=== PATIENT | female | born 1980 | race Caucasian/White ===

== ENCOUNTER 2018-03-01 12:48 | Emergency (ER) | payer SELFPAY ==
--- NOTE | 2018-03-01 13:57 | RAD REPORT ---
EXAM DESCRIPTION: RAD - Wrist Left 3 View - 03/01/2018 1:41 pm CLINICAL HISTORY: Wrist pain following repetitive trauma COMPARISON: None. FINDINGS: No gross fracture deformity is seen. Variable density over the lunate bone is felt to be s ummation artifact rather than fracture. Radiocarpal joint space is normal. Soft tissues are mildly ed ematous. There is no dislocation or periosteal reaction noted. No foreign body. IMPRESSION: Mild soft tissue edema with no acute bone finding confirmed. If the patient has continued, unexplained symptoms. MR imaging or thin section CT imaging could be pe rformed as an outpatient to assess for an occult bone process.
--- NOTE | 2018-03-01 15:04 | ER ---
Nurse's Notes [facility] Name: Renata Worthy Age: 37 yrs Sex: Female : 1980 Arrival Date: 03/01/2018 Time: 12:52 Bed 25 Private MD: Stiven Amador H Diagnosis: Pain in left hand Presentation: 03/01 13:10 Presenting complaint: Patient states: Left hand pain and bruising for 3-4 days after aj using left hand to hammer tile onto floor. Transition of care: patient was not received from another setting of care. Onset of symptoms was March 01, 2018. Risk Assessment: Do you want to hurt yourself or someone else? Patient reports no desire to harm self or others. Initial Sepsis Screen: Does the patient meet any 2 criteria? No. Patient's initial sepsis screen is negative. Does the patient have a suspected source of infection? No. Patient's initial sepsis screen is negative. Care prior to arrival: None. 13:10 Method Of Arrival: Ambulatory 13:10 Acuity: PATRICIA 4 aj Triage Assessment: 13:11 General: Appears in no apparent distress. comfortable, Behavior is calm, cooperative, aj appropriate for age. Pain: Complains of pain in left arm. Neuro: Level of Consciousness is awake, alert, obeys commands, Oriented to person, place, time, situation, Appropriate for age. Respiratory: Airway is patent Respiratory effort is even, unlabored, Respiratory pattern is regular, symmetrical. Derm: Skin is intact, is healthy with good turgor, Skin is pink, warm \\T\\ dry. normal. Musculoskeletal: Reports pain in left arm. Injury Description: Bruise sustained to left wrist. 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 - Social history:: Smoking status: Patient uses tobacco products, smokes one-half pack cigarettes per day. - Ebola Screening: : No symptoms or risks identified at this time. Screenin:54 Abuse screen: Denies threats or abuse. Denies injuries from another. Nutritional aj1 screening: No deficits noted. Tuberculosis screening: No symptoms or risk factors identified. 15:56 Fall Risk None identified. aj1 Assessment: 14:54 General: Appears in no apparent distress. uncomfortable, Behavior is calm, cooperative, aj1 appropriate for age. Pain: Complains of pain in left wrist Pain radiates to left arm Pain currently is 8 out of 10 on a pain scale. Quality of pain is described as "it just hurts" Pain began one week ago Is continuous, Aggravated by repositioning. Neuro: Level of Consciousness is awake, alert, obeys commands, Oriented to person, place, time, situation, Reports paresthesias in left hand. Cardiovascular: Patient's skin is warm and dry. Respiratory: Airway is patent Respiratory effort is even, unlabored, Respiratory pattern is regular, symmetrical. GI: No signs and/or symptoms were reported involving the gastrointestinal system. : No signs and/or symptoms were reported regarding the genitourinary system. EENT: No signs and/or symptoms were reported regarding the EENT system. Derm: Skin is pink, warm \\T\\ dry. normal, Bruising that is green, on left wrist. Musculoskeletal: Range of motion: intact in left wrist. 15:56 Reassessment: Patient appears in no apparent distress at this time. No changes from aj1 previously documented assessment. Patient and/or family updated on plan of care and expected duration. Pain level reassessed. Patient is alert, oriented x 3, equal unlabored respirations, skin warm/dry/pink. Vital Signs: 13:11 BP 123 / 106; Pulse 77; Resp 16; Temp 97.1; Pulse Ox 97% on R/A; Weight 90.72 kg; aj Height 5 ft. 3 in. (160.02 cm); 13:11 Body Mass Index 35.43 (90.72 kg, 160.02 cm) aj ED Course: 12:52 Patient arrived in ED. sb2 12:52 Stiven Amaodr DO is Private Physician. sb2 13:11 Triage completed. aj 13:11 Arm band placed on left wrist. Patient placed in waiting room, Patient notified of wait aj time. X-ray ordered. 13:41 XRAY Wrist LEFT 3 view In Process Unspecified. EDMS 14:21 Fei Beasley PA is PHCP. cp 14:21 Brian Oliva MD is Attending Physician. cp 14:24 Yeni French, RN is Primary Nurse. aj1 14:54 Patient has correct armband on for positive identification. Bed in low position. Call aj1 light in reach. Side rails up X 1. 14:54 No provider procedures requiring assistance completed. aj1 15:03 Stiven Amador DO is Referral Physician. cp 15:56 Patient did not have IV access during this emergency room visit. aj1 Administered Medications: 15:56 Drug: Ibuprofen 800 mg Route: PO; aj1 Outcome: 15:03 Discharge ordered by MD. cp 15:56 Discharged to home ambulatory. aj1 15:56 Condition: good 15:56 Discharge instructions given to patient, Instructed on discharge instructions, follow up and referral plans. medication usage, Demonstrated understanding of instructions, follow-up care, medications, Prescriptions given X 1. 15:57 Patient left the ED. aj1 Signatures: Dispatcher [employer] EDMS Yeni French, RN RN ajMeka Wyatt RN RN aj Fei Beasley, PA PA Hillary Plasencia sb2
--- NOTE | 2018-03-01 15:04 | EDPHYS ---
Physician Documentation [facility] Name: Renata Worthy Age: 37 yrs Sex: Female : 1980 Arrival Date: 03/01/2018 Time: 12:52 Bed 25 Private MD: Stiven Amador H ED Physician Brian Oliva HPI: 03/01 14:45 This 37 yrs old Female presents to ER via Ambulatory with complaints of Hand cp Injury. 14:45 The patient or guardian reports pain, swelling, tenderness. The complaints affect the cp left hand diffusely. 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 - Social history:: Smoking status: Patient uses tobacco products, smokes one-half pack cigarettes per day. - Ebola Screening: : No symptoms or risks identified at this time. ROS: 14:50 Constitutional: Negative for body aches, chills, fever, poor PO intake. cp 14:50 Eyes: Negative for injury, pain, redness, and discharge. cp 14:50 Cardiovascular: Negative for chest pain. 14:50 Respiratory: Negative for cough, shortness of breath, wheezing. 14:50 Abdomen/GI: Negative for abdominal pain, vomiting, diarrhea, constipation. 14:50 MS/extremity: Positive for pain, swelling, tenderness, of the left hand. 14:50 All other systems are negative. Exam: 14:53 Constitutional: The patient appears in no acute distress, alert, awake, non-toxic, well cp developed, well nourished. 14:53 Head/Face: Normocephalic, atraumatic. cp 14:53 Eyes: Periorbital structures: appear normal, Conjunctiva: normal, no exudate, no injection, Lids and lashes: appear normal, bilaterally. 14:53 ENT: External ear(s): are unremarkable, Nose: is normal, Mouth: is normal. 14:53 Chest/axilla: Inspection: normal. 14:53 Cardiovascular: Rate: normal, Rhythm: regular. 14:53 Respiratory: the patient does not display signs of respiratory distress, Respirations: normal, no use of accessory muscles, no retractions, no splinting, no tachypnea. 14:53 Abdomen/GI: Exam negative for discomfort, distension, guarding, Inspection: abdomen appears normal. 14:53 Back: pain, is absent, ROM is normal. 14:53 Musculoskeletal/extremity: Extremities: grossly normal except: noted in the left hand: ecchymosis, swelling, tenderness, There is no evidence of deformity, Perfusion: the extremity is normally perfused throughout, Sensation intact. 14:53 Skin: cellulitis, is not appreciated, no rash present. Vital Signs: 13:11 BP 123 / 106; Pulse 77; Resp 16; Temp 97.1; Pulse Ox 97% on R/A; Weight 90.72 kg; aj Height 5 ft. 3 in. (160.02 cm); 13:11 Body Mass Index 35.43 (90.72 kg, 160.02 cm) Procedures: 15:35 Splinting: Splint applied to left hand using sling, volar wrist splint. applied by cp nurse. Examined by me, post splint application: neurovascular intact, Patient tolerated well. MDM: 14:34 Patient medically screened. cp 15:02 Data reviewed: vital signs, nurses notes, radiologic studies, plain films, and as a cp result, I will discharge patient. 15:02 Differential diagnosis: dislocation, closed fracture, contusion. Test interpretation: cp by ED physician or midlevel provider: plain radiologic studies. 03/01 13:13 Order name: XRAY Wrist LEFT 3 view; Complete Time: 15:02 aj 03/01 15:02 Interpretation: Reviewed. cp 03/01 14:59 Order name: Volar Wrist Splint: with rafa wrap; Complete Time: 15:40 cp 03/01 15:14 Order name: Sling; Complete Time: 15:40 cp Administered Medications: 15:56 Drug: Ibuprofen 800 mg Route: PO; aj1 Disposition: 03/01/18 15:03 Discharged to Home. Impression: Pain in left hand. - Condition is Stable. - Discharge Instructions: Elastic Bandage and RICE, Musculoskeletal Pain. - Prescriptions for Naprosyn 500 mg Oral Tablet - take 1 tablet by ORAL route 2 times per day take with food; 20 tablet. - Medication Reconciliation Form, Thank You Letter, Antibiotic Education, Prescription Opioid Use form. - Follow up: Perry, SandieTheeh ; When: 5 - 6 days; Reason: if pain continues. Addendum: 03/03/2018 13:28 Co-signature as Attending Physician, Brian Oliva MD. g s Signatures: Dispatcher [employer] EDMS Yeni French RN RN aj1 Meka Saunders RN RN aj Gale, NIECY Enamorado PA Brian Wise MD MD Corrections: (The following items were deleted from the chart) 03/01 15:57 15:03 03/01/2018 15:03 Discharged to Home. Impression: Pain in left hand. Condition is aj1 Stable. Forms are Medication Reconciliation Form, Thank You Letter, Antibiotic Education, Prescription Opioid Use. Follow up: SandieLizeth Amador; When: 5 - 6 days; Reason: if pain continues. cp
[2018-03-01] MEDS ORDERED: IBUPROFEN 400 MG TAB ONE (15:49)
[2018-03-01 16:01] VITALS: BP 123/106; TEMP 97.1; O2SAT 97
== END 2018-03-01 15:57 | disposition home or self-care (01) ==
LOC: ER 12:48
DX: M79.642 Pain in left hand (principal); F17.210 Nicotine dependence, cigarettes, uncomplicated
CPT/HCPCS: 99283

== ENCOUNTER 2018-06-29 12:57 | Emergency (ER) | payer SELFPAY ==
[2018-06-29] MEDS ORDERED: HYDROCODONE/APAP 10/325 TAB ONE (13:47)
[2018-06-29] MEDS ORDERED: KETOROLAC 30 MG/ML INJ ONE (13:47)
[2018-06-29 13:54] LABS: Urine Blood 2+ (NEG); Urine Glucose NEGATIVE (NEG); Urine Protein NEGATIVE (NEG)
--- NOTE | 2018-06-29 14:27 | RAD REPORT ---
EXAM DESCRIPTION: CT - Stone Protocol - 06/29/2018 2:17 pm CLINICAL HISTORY: Left-sided abdominal pain, left-sided flank pain COMPARISON: CT August 2012 TECHNIQUE: Axial 5 mm thick images were obtained without oral or IV contrast. The [id number] span s the entirety of the system partially obscuring uppermost abdomen and lung bases. All CT scans are performed using dose optimization technique as appropriate and may include automated exposure control or mA/KV adjustment according to patient size. FINDINGS: No hydronephrosis is present and no obstructing ureteral calculi. No suspicious renal mass es. Isodense masses and pyelonephritis are not excluded on a stone protocol CT scan. No nonobstructin g calculi in either kidney. Urinary bladder is mostly contracted. There is a punctate calcification o n the right that is suspected to be a bladder calculus. This may represent a recently passed stone. N o perinephric stranding. Uterus and ovaries show no suspicious findings. Imaged portions of the liver, spleen and pancreas show no suspicious findings on non-contrast imaging . No gallbladder or biliary tree abnormality identified. No significant adrenal finding. No suspicious bowel findings. No appendicitis. Moderate stool volume throughout the colon. Numerous p hleboliths are seen along the pelvic floor. No hernia, mass or bulky lymphadenopathy noted. No free air, free fluid or inflammatory stranding. No significant bony abnormality. IMPRESSION: No hydronephrosis or obstructing calculus. No acute finding seen. Mostly contracted urinary bladder does show evidence for a punctate bladder calculus. This could repr esent a recently passed stone. Isodense masses and pyelonephritis are not excluded on stone protocol technique.
--- NOTE | 2018-06-29 14:31 | EDPHYS ---
Physician Documentation [facility] Name: Renata Worthy Age: 37 yrs Sex: Female : 1980 Arrival Date: 06/29/2018 Time: 12:59 Bed 14 Private MD: Stiven Amador H ED Physician Brian Oliva HPI: 06/29 14:28 This 37 yrs old Female presents to ER via Ambulatory with complaints of Back gs Pain. 14:28 The patient presents with pain that is acute. The symptoms are located in the low back, gs left low back. Onset: The symptoms/episode began/occurred yesterday. The pain does not radiate. Associated signs and symptoms: Pertinent negatives: constipation, incontinence, urinary retention. Modifying factors: the patient symptoms are aggravated by any movement, bending. Severity of symptoms: At their worst the symptoms were moderate, in the emergency department the symptoms are unchanged. The patient has not experienced similar symptoms in the past. Historical: - Allergies: 13:19 Macrobid; ss - Home Meds: 13:19 None [Active]; ss - PMHx: 13:19 None; ss - PSHx: 13:19 None; ss - Immunization history:: Adult Immunizations up to date. - Social history:: Smoking status: Patient uses tobacco products, "3 cigarettes/ day". - Ebola Screening: : Patient denies exposure to infectious person Patient denies travel to an Ebola-affected area in the 21 days before illness onset. ROS: 14:28 All other systems are negative. gs Exam: 14:28 Head/Face: Normocephalic, atraumatic. Eyes: Pupils equal round and reactive to light, gs extra-ocular motions intact. Lids and lashes normal. Conjunctiva and sclera are non-icteric and not injected. Cornea within normal limits. Periorbital areas with no swelling, redness, or edema. ENT: Nares patent. No nasal discharge, no septal abnormalities noted. Tympanic membranes are normal and external auditory canals are clear. Oropharynx with no redness, swelling, or masses, exudates, or evidence of obstruction, uvula midline. Mucous membranes moist. Neck: Trachea midline, no thyromegaly or masses palpated, and no cervical lymphadenopathy. Supple, full range of motion without nuchal rigidity, or vertebral point tenderness. No Meningismus. Chest/axilla: Normal chest wall appearance and motion. Nontender with no deformity. No lesions are appreciated. Cardiovascular: Regular rate and rhythm with a normal S1 and S2. No gallops, murmurs, or rubs. Normal PMI, no JVD. No pulse deficits. Respiratory: Lungs have equal breath sounds bilaterally, clear to auscultation and percussion. No rales, rhonchi or wheezes noted. No increased work of breathing, no retractions or nasal flaring. Abdomen/GI: Soft, non-tender, with normal bowel sounds. No distension or tympany. No guarding or rebound. No evidence of tenderness throughout. Skin: Warm, dry with normal turgor. Normal color with no rashes, no lesions, and no evidence of cellulitis. MS/ Extremity: Pulses equal, no cyanosis. Neurovascular intact. Full, normal range of motion. Neuro: Awake and alert, GCS 15, oriented to person, place, time, and situation. Cranial nerves II-XII grossly intact. Motor strength 5/5 in all extremities. Sensory grossly intact. Cerebellar exam normal. Normal gait. 14:28 Constitutional: The patient appears alert, awake. 14:28 Back: Exam negative for pain, that is moderate, of the left low back. Vital Signs: 13:16 Resp 20; Temp 98.8(O); Weight 86.18 kg; Height 5 ft. 3 in. (160.02 cm); Pain 10/10; ss 13:45 BP 120 / 97; Pulse 92; Resp 16 S; Pulse Ox 100% on R/A; jl7 14:45 BP 120 / 85; Pulse 78; Resp 16; Pulse Ox 99% on R/A; jl7 13:16 Body Mass Index 33.66 (86.18 kg, 160.02 cm) ss MDM: 13:24 Patient medically screened. 14:28 Differential diagnosis: chronic back pain, Ligament Injury ruptured disc, gs Ureterolithiasis. Data reviewed: vital signs, nurses notes. Counseling: I had a detailed discussion with the patient and/or guardian regarding: the historical points, exam findings, and any diagnostic results supporting the discharge/admit diagnosis, lab results, radiology results, the need for outpatient follow up. Response to treatment: the patient's symptoms have markedly improved after treatment, and as a result, I will discharge patient. 06/29 13:50 Order name: Urine Dipstick--Ancillary (enter results); Complete Time: 13:57 eb 06/29 13:51 Order name: Urine --Ancillary (enter results); Complete Time: 13:57 eb 06/29 13:57 Order name: CT Stone Protocol; Complete Time: 14:28 Administered Medications: 13:47 Drug: [place] 10 mg-325 mg 1 tabs Route: PO; jl7 14:42 Follow up: Response: No adverse reaction; Pain is decreased jl7 13:47 Drug: TORadol 30 mg Route: IM; Site: right gluteus; jl7 14:42 Follow up: Response: No adverse reaction jl7 Disposition: 06/29/18 14:30 Discharged to Home. Impression: Lumbosacral plexus disorders. - Condition is Stable. - Discharge Instructions: Lumbosacral Strain, Lumbosacral Radiculopathy. - Prescriptions for Prednisone 20 mg Oral Tablet - take 1 tablet by ORAL route once daily for 5 days; 5 tablet. Tylenol- Codeine #4 300-60 mg Oral Tablet - take 1 tablet by ORAL route every 6 hours As needed; 10 tablet. - Medication Reconciliation Form, Thank You Letter, Antibiotic Education, Prescription Opioid Use form. - Follow up: Stiven Amador DO; When: 2 - 3 days; Reason: Re-evaluation by your physician. Signatures: Dispatcher [employer] EDMS Keyanna Basilio RN RN Wendi Villafana RN RN jl7 Brian Oliva MD MD Corrections: (The following items were deleted from the chart) 14:51 14:30 06/29/2018 14:30 Discharged to Home. Impression: Lumbosacral plexus disorders. jl7 Condition is Stable. Forms are Medication Reconciliation Form, Thank You Letter, Antibiotic Education, Prescription Opioid Use. Follow up: Stiven Amador; When: 2 - 3 days; Reason: Re-evaluation by your physician. gs
--- NOTE | 2018-06-29 14:31 | ER ---
Nurse's Notes [facility] Name: Renata Worthy Age: 37 yrs Sex: Female : 1980 Arrival Date: 06/29/2018 Time: 12:59 Bed 14 Private MD: Stiven Amador H Diagnosis: Lumbosacral plexus disorders Presentation: 06/29 13:16 Presenting complaint: Patient states: L low back pain that radiates down L buttock that ss began last night. No known injury. Transition of care: patient was not received from another setting of care. Onset of symptoms was June 28, 2018. Risk Assessment: Do you want to hurt yourself or someone else? Patient reports no desire to harm self or others. Initial Sepsis Screen: Does the patient meet any 2 criteria? No. Patient's initial sepsis screen is negative. Does the patient have a suspected source of infection? No. Patient's initial sepsis screen is negative. Care prior to arrival: None. 13:16 Method Of Arrival: Ambulatory ss 13:16 Acuity: PATRICIA 4 ss Historical: - Allergies: 13:19 Macrobid; ss - Home Meds: 13:19 None [Active]; ss - PMHx: 13:19 None; ss - PSHx: 13:19 None; ss - Immunization history:: Adult Immunizations up to date. - Social history:: Smoking status: Patient uses tobacco products, "3 cigarettes/ day". - Ebola Screening: : Patient denies exposure to infectious person Patient denies travel to an Ebola-affected area in the 21 days before illness onset. Screenin:30 Abuse screen: Denies threats or abuse. Denies injuries from another. Nutritional jl7 screening: No deficits noted. Tuberculosis screening: No symptoms or risk factors identified. Fall Risk None identified. Assessment: 13:30 General: Appears in no apparent distress. uncomfortable, Behavior is agitated, anxious. jl7 Pain: Complains of pain in left low back Pain radiates to left hamstring Pain currently is 10 out of 10 on a pain scale. Quality of pain is described as sharp, shooting, Is continuous. Neuro: Level of Consciousness is awake, alert, obeys commands, Oriented to person, place, time, situation. Cardiovascular: Patient's skin is warm and dry. Respiratory: Airway is patent Respiratory effort is even, unlabored, Respiratory pattern is regular, symmetrical. Derm: Skin is pink, warm \\T\\ dry. 13:50 Reassessment: Pt appears agitated and states "I don't understand how the doctor can jl7 diagnose me just put touching my leg and asking questions." Provider notified. 14:30 Reassessment: Dr. Oliva at bedside discussing plan of care. jl7 Vital Signs: 13:16 Resp 20; Temp 98.8(O); Weight 86.18 kg; Height 5 ft. 3 in. (160.02 cm); Pain 10/10; ss 13:45 BP 120 / 97; Pulse 92; Resp 16 S; Pulse Ox 100% on R/A; jl7 14:45 BP 120 / 85; Pulse 78; Resp 16; Pulse Ox 99% on R/A; jl7 13:16 Body Mass Index 33.66 (86.18 kg, 160.02 cm) ss ED Course: 12:59 Patient arrived in ED. mr 12:59 Stiven Amador DO is Private Physician. mr 13:08 Wendi Villafana, RN is Primary Nurse. jl7 13:09 Brian Oliva MD is Attending Physician. gs 13:16 Arm band placed on right wrist. ss 13:18 Triage completed. ss 13:30 Patient has correct armband on for positive identification. Bed in low position. Call jl7 light in reach. Side rails up X 1. Pulse ox on. NIBP on. 13:30 No provider procedures requiring assistance completed. Patient did not have IV access jl7 during this emergency room visit. 14:17 CT Stone Protocol In Process Unspecified. EDMS 14:30 Stiven Amador DO is Referral Physician. gs Administered Medications: 13:47 Drug: [place] 10 mg-325 mg 1 tabs Route: PO; jl7 14:42 Follow up: Response: No adverse reaction; Pain is decreased jl7 13:47 Drug: TORadol 30 mg Route: IM; Site: right gluteus; jl7 14:42 Follow up: Response: No adverse reaction jl7 Outcome: 14:30 Discharge ordered by . gs 14:50 Discharged to home ambulatory, with friend. jl7 14:50 Condition: stable 14:50 Discharge instructions given to patient, Instructed on discharge instructions, follow up and referral plans. medication usage, Demonstrated understanding of instructions, follow-up care, medications, Prescriptions given X 2. 14:51 Patient left the ED. jl7 Signatures: Dispatcher [employer] Rafaela Pulido Shelby, RN RN Wendi Ronquillo RN RN jl7 Brain Oliva MD MD
[2018-06-29 15:04] VITALS: TEMP 98.8
[2018-06-29 15:06] VITALS: BP 120/85; O2SAT 99
== END 2018-06-29 14:51 | disposition home or self-care (01) ==
LOC: ER 12:57
DX: G54.1 Lumbosacral plexus disorders (principal); F17.210 Nicotine dependence, cigarettes, uncomplicated; Z88.8 Allergy status to other drugs, medicaments and biological substances
CPT/HCPCS: 74176; 76377; 81003; 81025; 96372; 99284

== ENCOUNTER → 2023-09-28 | Emergency (ER) | payer SELFPAY ==
[~2023-09-28] MED LIST: CEFTRIAXONE 1000 MG/VIAL ONE; CIPROFLOXACIN HCL 500 MG TAB ONE; D10W 250 ML IV ONE; NA CHLORIDE 0.9% 1,000 ML ONE
--- OUTSIDE RECORDS SUMMARY | 2023-09-28 02:23 | XMS REPORT | Continuity of Care Document ---
Author Name Unknown Address [address] [place] [address] [facility]connect Address 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 Role Phone Unavailable Unavailable Unavailable Encounters Start Date/Time End Date/Time Encounter Type Admission Type Attending [facility] Facility Care Department Encounter ID Source 2023-09-03 14:37:55 2023-09-03 14:37:55 Outpatient [facility] [id number] Robert Amaral Pete 2023-08-06 14:51:08 2023-08-06 14:51:08 Outpatient [facility]FA [facility] [id number] Robert Amaral Pete 2023-07-05 15:13:42 2023-07-05 15:13:42 Outpatient SFA [facility] [id number] Robert Amaral Pete 2023-05-30 13:48:08 2023-05-30 13:48:08 Outpatient [facility] [id number] Robert Amaral Pete 2023-05-03 15:35:40 2023-05-03 15:35:40 Outpatient [facility] [id number] Robert Amaral Pete 2023-04-05 10:54:45 2023-04-05 10:54:45 Outpatient [facility]FA [facility] [id number] Robert Amaral Pete 2023-03-08 10:52:01 2023-03-08 10:52:01 Outpatient [facility]FA [facility] [id number] Robert Amaral Pete 2023-02-07 10:04:32 2023-02-07 10:04:32 Outpatient [facility] [id number] Robert Freeman 2023-01-10 10:28:33 2023-01-10 10:28:33 Outpatient [facility]FA [facility] [id number] Robert Freeman 2022-12-13 10:10:18 2022-12-13 10:10:18 Outpatient [facility] [id number] Robert Freeman 2022-10-16 13:14:20 2022-10-16 13:14:20 Outpatient [facility] [id number] Robert Freeman 2022-10-03 13:01:55 2022-10-03 13:01:55 Outpatient [facility] [id number] Robert Amaral Pete 2022-08-23 11:21:43 2022-08-23 11:21:43 Outpatient [facility] [id number] Robert Amaral Pete 2022-07-22 09:53:57 2022-07-22 09:53:57 Outpatient [facility] [id number] Robert Amaral Pete 2022-07-21 11:04:33 2022-07-21 11:04:33 Outpatient [facility] [id number] 1021 Robert Cristin Pete
[2023-09-28 03:46] LABS: Absolute Lymphocytes (CBC) 3.5 K/uL (0.7-4.9); Hematocrit 32.4 % (36.0-45.0); Lymphocytes % 44.3 % (15.3-44.8); MPV 7.8 fL (7.6-11.3); Platelets 378 thou/uL (152-406); RBC Red Blood Cell Count 4.05 M/uL (3.86-4.86)
[2023-09-28 04:05] LABS: ALT/SGPT 20 U/L (13-56); AST/SGOT 21 U/L (15-37); Albumin 4.2 g/dL (3.4-5.0); Alkaline Phosphatase 79 U/L (45-117); BUN Blood Urea Nitrogen 16 mg/dL (7-18); Bicarbonate 27 mEq/L (21-32); Bilirubin Total 0.2 mg/dL (0.2-1.0); Glomerular Filtration Rate 108 ml/min (=/>90); Glucose Level 73 mg/dL (74-106); Potassium 3.7 mEq/L (3.5-5.1); Protein, Total 8.2 g/dL (6.4-8.2); Sodium Level 138 mEq/L (136-145)
[2023-09-28 04:06] LABS: Bilirubin Direct < 0.1 mg/dL (0-0.2); Bilirubin Indirect, Calculated ND mg/dL (0.2-0.8)
[2023-09-28 05:06] LABS: Specific Gravity > 1.030 (1.005-1.030)
[2023-09-28 05:08] LABS: Urine Bacteria 20-50 /HPF (<20); Urine Bilirubin NEGATIVE (Negative); Urine Blood Negative (Negative); Urine Clarity Clear (Clear); Urine Color Light-Yellow (Yellow); Urine Glucose NEGATIVE (Negative); Urine Mucus Slight /HPF (None Seen); Urine Protein TRACE (Negative); Urine RBC None Seen /HPF (None Seen); Urine Urobilinogen Normal (Normal); Urine pH 6.5 (5.0-7.0)
[2023-09-28 05:09] LABS: Barbiturates NEGATIVE (NEGATIVE); Benzodiazepines NEGATIVE (NEGATIVE); Cocaine NEGATIVE (NEGATIVE); METHAMPHETAM POSITIVE (NEGATIVE); Methadone NEGATIVE (NEGATIVE); Opiates NEGATIVE (NEGATIVE); Phencyclidine NEGATIVE (NEGATIVE); THC Cannibis NEGATIVE (NEGATIVE)
[2023-09-28 05:11] LABS: Specific Gravity > 1.035 (1.005-1.030)
--- NOTE | 2023-09-28 05:33 | ER ---
Nurse's Notes [facility] Name: Renata Worthy Age: 42 yrs Sex: Female : 1980 Arrival Date: 09/28/2023 Time: 02:18 Bed 3 Private MD: Diagnosis: UTI/ Urinary tract infection, site not specified;Abuse of other non-psychoactive substances Presentation: 09/28 02:20 Chief complaint: EMS states: S.O. called due to pt acting abnormal after claiming to go km8 to the kitchen to get something to eat; pt admitted to S.O. that she took 8 Soma pills; pt told EMS she took 3 Adderall pills and when asked again she only took Advil; upon arrival to ER she admitted to taking 8 Soma pills; pt denies SI. Coronavirus screen: Client denies travel out of the [place] in the last 14 days. Ebola Screen: No symptoms or risks identified at this time. Initial Sepsis Screen: Does the patient meet any 2 criteria? Altered Mental Status. HR > 90 bpm. Yes Does the patient have a suspected source of infection? No. Patient's initial sepsis screen is negative. If YES to both, name of provider notified: Fei PEMBERTON. Risk Assessment: Do you want to hurt yourself or someone else? Patient reports no desire to harm self or others. Onset of symptoms. 02:20 Method Of Arrival: EMS: [facility] km8 02:20 Acuity: PATRICIA 2 km8 Triage Assessment: 02:20 General: Appears in no apparent distress. Behavior is crying, drowsy, restless. Pain: km8 Denies pain. EENT: No signs and/or symptoms were reported regarding the EENT system. Neuro: [place] Agitation-Sedation Scale (RASS): -1 Drowsy Level of Consciousness is obeys commands, Oriented to person, place, time, situation. Historical: - Allergies: 05:37 Macrobid; km8 - Immunization history:: Adult Immunizations unknown. - Social history:: Smoking status: Reported history of juuling and/or vaping. Patient uses "muscle relaxers" , Patient/guardian denies using alcohol. Screenin:20 [facility] ED Fall Risk Assessment (Adult) History of falling in the last 3 months, km8 including since admission No falls in past 3 months (0 pts) Confusion or Disorientation No (0 pts) Intoxicated or Sedated Yes (3 pts) Impaired Gait No (0 pts) Mobility Assist Device Used No (0 pt) Altered Elimination No (0 pt) Score/Fall Risk Level 3 or more points = High Risk Oriented to surroundings, Maintained a safe environment, Educated pt \\T\\ family on fall prevention, incl call for assistance when getting out of bed, Assessed \\T\\ reinforced patient's understanding of fall precautions, Provided non-skid footwear, Hourly rounding (assess needs \\T\\ fall precautionary measures) done, Implemented a Fall Risk Plan of Care, Remained w/in arm's length of patient and in sight while toileting, Remained with patient while ambulating, Utilized family, sitter, or virtual process engineering manager as indicated. Abuse screen: Denies threats or abuse. Denies injuries from another. Nutritional screening: No deficits noted. Tuberculosis screening: No symptoms or risk factors identified. Assessment: 02:20 General: see triage notes/assessment. km8 03:08 Reassessment: Patient appears in no apparent distress at this time. No changes from km8 previously documented assessment. Patient and/or family updated on plan of care and expected duration. Pain level reassessed. 04:05 Reassessment: Patient appears in no apparent distress at this time. No changes from tm6 previously documented assessment. 05:01 Reassessment: Patient appears in no apparent distress at this time. Patient and/or tm6 family updated on plan of care and expected duration. Pain level reassessed. Patient is alert, oriented x 3, equal unlabored respirations, skin warm/dry/pink. 05:28 Neuro: Level of Consciousness is awake, alert, obeys commands, Oriented to person, tm6 place, time, situation. 05:49 Reassessment: Patient appears in no apparent distress at this time. Patient and/or tm6 family updated on plan of care and expected duration. Pain level reassessed. Patient is alert, oriented x 3, equal unlabored respirations, skin warm/dry/pink. Overdose: 03:35 [place] Suicide Severity Screening: "In the past month, have you wished you were km8 or wished you could go to sleep and not wake up?" Patient responds "no." "In the past month, have you actually had any thoughts of killing yourself?" Patient responds "no." "In your lifetime, have you ever done anything, started to do anything, or prepared to do anything to end your life?" Patient responds "no.". 05:49 [place] Suicide Severity Screening: "In the past month, have you wished you were tm6 or wished you could go to sleep and not wake up?" Patient responds "no." "In the past month, have you actually had any thoughts of killing yourself?" Patient responds "no." Patient responds "yes." Based off client's responses, additional C-SSRS screening questions required. Vital Signs: 02:20 BP 129 / 93; Pulse 97; Resp 16; Pulse Ox 99% on R/A; km8 02:30 BP 114 / 79; Pulse 92; Resp 16; Pulse Ox 100% on R/A; km8 03:36 BP 92 / 63; Pulse 86; Pulse Ox 100% on R/A; km8 04:04 BP 94 / 67; Pulse 86; Pulse Ox 100% on R/A; tm6 05:01 BP 98 / 59; Pulse 85; Pulse Ox 100% on R/A; Pain 0/10; tm6 05:23 BP 111 / 80; Pulse 78; Pulse Ox 100% on R/A; tm6 05:49 BP 107 / 84; Pulse 76; Pulse Ox 100% on R/A; Pain 0/10; tm6 05:01 Pain Scale: Adult tm6 05:49 Pain Scale: Adult tm6 [place] Coma Score: 02:20 Eye Response: to voice(3). Motor Response: obeys commands(6). Verbal Response: km8 oriented(5). Total: 14. ED Course: 02:20 Patient maintains SpO2 saturation greater than 95% on room air. km8 02:20 Patient has correct armband on for positive identification. Bed in low position. Call km8 light in reach. Side rails up X2. Client placed on continuous cardiac and pulse oximetry monitoring. NIBP monitoring applied. Door closed. Noise minimized. Warm blanket given. 02:25 Patient arrived in ED. wm 02:25 Missed attempt(s): 20 gauge in right antecubital area. Bleeding controlled, band aid km8 applied, catheter tip intact. 02:27 Inserted saline lock: 22 gauge in right forearm, using aseptic technique. Blood km8 collected. 02:29 Fei Beasley PA is PHCP. cp 02:29 Fei Rod MD is Attending Physician. cp 02:30 Triage completed. km8 03:06 CT Head Brain wo Cont In Process Unspecified. EDMS 03:07 XRAY Chest (1 view) In Process Unspecified. EDMS 03:07 Salicylate Sent. km8 03:07 Ptt, Activated Sent. km8 03:07 PT-INR Sent. km8 03:07 Hepatic Function Sent. km8 03:07 ETOH Level Sent. km8 03:07 CBC with Diff Sent. km8 03:07 Basic Metabolic Panel Sent. km8 03:07 Acetaminophen Sent. km8 03:35 No provider procedures requiring assistance completed. km8 03:35 Arm band placed on right wrist. km8 05:50 IV discontinued, intact, bleeding controlled, No redness/swelling at site. Pressure tm6 dressing applied. 05:50 Provided Education on: antibiotics given. tm6 Administered Medications: 05:00 Drug: NS 0.9% IV 1000 ml IV at 1 bolus Per protocol; 1000 mL bolus Route: IV; Rate: 1 tm6 bolus; Site: left wrist; 05:51 Follow up: Response: No adverse reaction tm6 05:00 Drug: D10 in Water IVP 250 ml IVP once Route: IVP; Site: left forearm; tm6 05:51 Follow up: Response: No adverse reaction tm6 05:51 Drug: Rocephin IV 1 grams IV at per protocol once; Given slow IV push per pharmacy tm6 instructions Route: IV; Rate: per protocol; Site: right forearm; 05:51 Drug: Ciprofloxacin PO 500 mg PO once Route: PO; tm6 Medication: 02:20 VIS not applicable for this client. km8 Outcome: 05:33 Discharge ordered by . paula 05:50 Discharged to home ambulatory, with family, tm6 05:50 Condition: stable 05:50 Discharge instructions given to patient, family, Instructed on discharge instructions, follow up and referral plans. medication usage, Demonstrated understanding of instructions, follow-up care, medications, Prescriptions given X 1, 05:50 Patient left the ED. tm6 Signatures: Dispatcher [employer] EDPR Fei Rod MD MD cha Page, Corey, PA PA cp Marsh, Wendy wm Marx, Katie, RN RN km8 Mikel Young, RN RN tm6
--- NOTE | 2023-09-28 05:33 | EDPHYS ---
Physician Documentation [facility] Name: Renata Worthy Age: 42 yrs Sex: Female : 1980 Arrival Date: 09/28/2023 Time: 02:18 Bed 3 Private MD: ED Physician Fei Rod HPI: 09/28 02:34 This 42 yrs old Female presents to ER via EMS with complaints of Drug Abuse. cp 02:34 The patient presents to the emergency department after a known overdose, a result of cp recreational substance abuse. Context: Method: the patient has a confirmed or suspected ingestion, 8 Soma tablets and 3 Adderall tablets, Time: the patient's OD/poisoning occurred at an unknown time, Extent: the OD/poisoning occurred at at home, and was witnessed no one. 02:34 Associated signs and symptoms: Pertinent positives: decreased level of consciousness. cp Severity of symptoms: in the emergency department the symptoms are unchanged despite EMS interventions. 04:55 Patient reports taking 3 tablets of Tylenol in addition to Soma. Reports regular dose cp of Tylenol. Denies suicidal ideation. Historical: - Allergies: 05:37 Macrobid; km8 - Immunization history:: Adult Immunizations unknown. - Social history:: Smoking status: Reported history of juuling and/or vaping. Patient uses "muscle relaxers" , Patient/guardian denies using alcohol. ROS: 02:37 Constitutional: Negative for fever, poor PO intake, cp 02:37 Eyes: Negative for injury, pain, redness, and discharge, cp 02:37 Cardiovascular: Negative for chest pain, 02:37 Respiratory: Negative for cough, wheezing, 02:37 Abdomen/GI: Negative for vomiting, diarrhea, constipation, 02:37 Neuro: Positive for altered mental status, 02:37 Unable to obtain ROS due to altered mental status, cp Exam: 02:38 ECG was reviewed by the Attending Physician. cp 02:40 Constitutional: The patient appears in no acute distress, non-diaphoretic, non-toxic, cp well developed, well nourished, 02:40 Head/Face: Normocephalic, atraumatic. cp 02:40 Eyes: Periorbital structures: appear normal, Conjunctiva: normal, no exudate, no injection, Sclera: no appreciated abnormality, Lids and lashes: appear normal, bilaterally, 02:40 ENT: External ear(s): are unremarkable, Nose: is normal, Mouth: Lips: moist, Oral mucosa: pink and intact, moist, Posterior pharynx: Airway: no evidence of obstruction, patent, 02:40 Neck: ROM/movement: is normal, is supple, without pain, no range of motions limitations, no meningismus, 02:40 Chest/axilla: Inspection: normal, 02:40 Cardiovascular: Rate: normal, Rhythm: regular, Edema: is not appreciated, JVD: is not appreciated, 02:40 Respiratory: the patient does not display signs of respiratory distress, Respirations: normal, no use of accessory muscles, no retractions, labored breathing, is not present, Breath sounds: are clear throughout, no decreased breath sounds, no stridor, 02:40 Abdomen/GI: Inspection: abdomen appears normal, Palpation: abdomen is soft and non-tender, in all quadrants, 02:40 Neuro: Orientation: to person, place, situation, Mentation: able to follow commands, slow to respond, Motor: moves all fours, no focal deficits noted, Vital Signs: 02:20 BP 129 / 93; Pulse 97; Resp 16; Pulse Ox 99% on R/A; km8 02:30 BP 114 / 79; Pulse 92; Resp 16; Pulse Ox 100% on R/A; km8 03:36 BP 92 / 63; Pulse 86; Pulse Ox 100% on R/A; km8 04:04 BP 94 / 67; Pulse 86; Pulse Ox 100% on R/A; tm6 05:01 BP 98 / 59; Pulse 85; Pulse Ox 100% on R/A; Pain 0/10; tm6 05:23 BP 111 / 80; Pulse 78; Pulse Ox 100% on R/A; tm6 05:49 BP 107 / 84; Pulse 76; Pulse Ox 100% on R/A; Pain 0/10; tm6 05:01 Pain Scale: Adult tm6 05:49 Pain Scale: Adult tm6 [place] Coma Score: 02:20 Eye Response: to voice(3). Motor Response: obeys commands(6). Verbal Response: km8 oriented(5). Total: 14. MDM: 02:29 Patient medically screened. cp 02:40 Differential diagnosis: polypharmacy, hypoglycemia, suicidal ideation. cp 04:59 Data reviewed: vital signs, nurses notes, lab test result(s), EKG, radiologic studies, cp CT scan, plain films. Consideration of Admission/Observation Escalation of care including admission/observation considered. 09/28 02:31 Order name: Acetaminophen; Complete Time: 04:33 09/28 04:42 Interpretation: Reviewed. 09/28 02:31 Order name: Basic Metabolic Panel; Complete Time: 04:33 09/28 04:33 Interpretation: Normal except: GLUC 73. 09/28 02:31 Order name: CBC with Diff; Complete Time: 04:33 09/28 04:34 Interpretation: Normal except: HGB 10.3; HCT 32.4; MCH 25.4; MCHC 31.7; RDW 18.2. 09/28 02:31 Order name: ETOH Level; Complete Time: 04:33 09/28 02:31 Order name: Hepatic Function; Complete Time: 04:33 09/28 02:31 Order name: PT-INR; Complete Time: 04:33 09/28 02:31 Order name: Test, Urine; Complete Time: 05:29 09/28 02:31 Order name: Ptt, Activated; Complete Time: 04:33 09/28 02:31 Order name: Salicylate; Complete Time: 04:33 09/28 02:31 Order name: Urinalysis w/ reflexes; Complete Time: 05:29 09/28 02:31 Order name: Urine Drug Screen; Complete Time: 05:29 09/28 05:01 Order name: Acetaminophen: redraw a 4 hr level; Complete Time: 05:31 09/28 02:31 Order name: CT Head Brain wo Cont; Complete Time: 04:53 09/28 02:31 Order name: XRAY Chest (1 view); Complete Time: 04:53 09/28 02:31 Order name: EKG; Complete Time: 02:32 09/28 02:31 Order name: EKG - Nurse/Tech; Complete Time: 02:32 09/28 02:31 Order name: IV Saline Lock; Complete Time: 02:32 09/28 02:31 Order name: Labs collected and sent; Complete Time: 02:32 09/28 02:31 Order name: Suicide Screening ([place]); Complete Time: 02:32 09/28 05:32 Order name: PO challenge: juice; Complete Time: 05:48 paula EC:38 Rate is 97 beats/min. Rhythm is regular. MT interval is normal. QRS interval is normal. cp QT interval is normal. T waves are Inverted in lead aVR. Interpreted by me. Reviewed by me. Administered Medications: 05:00 Drug: NS 0.9% IV 1000 ml IV at 1 bolus Per protocol; 1000 mL bolus Route: IV; Rate: 1 tm6 bolus; Site: left wrist; 05:51 Follow up: Response: No adverse reaction tm6 05:00 Drug: D10 in Water IVP 250 ml IVP once Route: IVP; Site: left forearm; tm6 05:51 Follow up: Response: No adverse reaction tm6 05:51 Drug: Rocephin IV 1 grams IV at per protocol once; Given slow IV push per pharmacy tm6 instructions Route: IV; Rate: per protocol; Site: right forearm; 05:51 Drug: Ciprofloxacin PO 500 mg PO once Route: PO; tm6 Disposition Summary: 09/28/23 05:33 Discharge Ordered Notes: Location: Home paula Problem: new paula Symptoms: have improved paula Condition: Stable paula Diagnosis - UTI/ Urinary tract infection, site not specified paula - Abuse of other non-psychoactive substances paula Followup: paula - With: Private Physician - When: 2 - 3 days - Reason: Recheck today's complaints, Continuance of care, Re-evaluation by your physician Discharge Instructions: - Discharge Summary Sheet paula - Dysuria paula - Substance Use Disorder paula - Urinary Tract Infection, Adult paula - Supporting Someone With an Addiction paula - Urinary Tract Infection, Adult, [id number] Forms: - Medication Reconciliation Form paula - Thank You Letter paula - Antibiotic Education paula - Prescription Opioid Use paula - Patient Portal Instructions paula - Leadership Thank You Letter [facility] Prescriptions: - Cipro 250 mg Oral tablet - take 1 tablet ORAL route every 12 hours; 14 tablet; Refills: 0, Product paula Selection Permitted Signatures: Dispatcher [employer] Fei Monsalve MD MD cha Page, Corey, PA PA cp Marx, Katie, RN RN km8 Mikel Young RN RN tm6 Corrections: (The following items were deleted from the chart) 04:54 04:33 Jimenez ordered. cp tm6
[2023-09-28 10:50] VITALS: O2SAT 100
[2023-09-28 10:57] VITALS: BP 107/84
--- NOTE | 2023-09-28 15:27 | EKG ---
Test Date: 2023-09-28 Test Time: 02:30:12 Optics Engineer: VERONICA MEASUREMENT RESULTS: Intervals: Rate: 97 GA: 152 QRSD: 82 QT: 376 QTc: 477 [place]: P: 69 GA: 152 QRS: 73 T: 65 INTERPRETIVE STATEMENTS: Normal sinus rhythm Normal ECG Compared to ECG 09/15/2012 19:20:11 No significant changes Electronically Signed On 09-28-23 15:26:36 OUTBOUND TELEMARKETING REPRESENTATIVE by Anand Mckeon
--- NOTE | 2023-09-28 17:20 | RAD REPORT ---
EXAM DESCRIPTION: CT Head Without Intravenous Contrast CLINICAL HISTORY: The patient is 42 years old and is Female; MENTAL STATUS CHANGE TECHNIQUE: Axial computed tomography images of the head/brain without intravenous contrast. Sagitt al and coronal reformatted images were created and reviewed. This CT exam was performed using one o r more of the following dose reduction techniques: automated exposure control, adjustment of the mA and/or kV according to patient size, and/or use of iterative reconstruction technique. COMPARISON: No relevant prior studies available. FINDINGS: Brain: Unremarkable. No hemorrhage. No significant white matter disease. No edema. Ventricles: Unremarkable. No ventriculomegaly. Bones/joints: Unremarkable. No acute skull fracture. Soft tissues: Unremarkable. Sinuses: Unremarkable as visualized. No acute sinusitis. Mastoid air cells: No significant mastoid fluid. IMPRESSION: No acute intracranial findings. No hemorrhage. Electronically signed by: Becka Randhawa MD 09/28/2023 04:18 AM INSURANCE COMPLIANCE ANALYST Due to temporary technical issues with the PACS/Fluency reporting system, reports are being signed by the in house radiologists without review as a courtesy to insure prompt reporting. The interpreting radiologist is fully responsible for the content of the report.
--- NOTE | 2023-09-28 17:26 | RAD REPORT ---
EXAM DESCRIPTION: EXAM: XR Chest, 1 View CLINICAL HISTORY: The patient is 42 years old and is Female; ams TECHNIQUE: Single view of the chest. COMPARISON: No relevant prior studies available. FINDINGS: Lungs: No pulmonary vascular congestion or consolidation. Pleural space: Unremarkable. No pneumothorax. Heart: Unremarkable. No cardiomegaly. Mediastinum: Unremarkable. Normal mediastinal contour. Bones/joints: No acute fracture visualized. Upper abdomen: No free air in the visualized upper abdomen. IMPRESSION: No acute cardiopulmonary process identified. Electronically signed by: Becka Randhawa MD 09/28/2023 04:18 AM DENTAL RESIDENT Due to temporary technical issues with the PACS/Fluency reporting system, reports are being signed by the in house radiologists without review as a courtesy to insure prompt reporting. The interpreting radiologist is fully responsible for the content of the report.
== END ==
LOC: ER 02:18
DX: N39.0 Urinary tract infection, site not specified (principal); F55.8 Abuse of other non-psychoactive substances
CPT/HCPCS: 36415; 70450; 71045; 80048; 80076; 80143; 80179; 80307; 81001; 81025; 82077; 85025; 85610; 85730; 93005; 96374; 99285; J0696; J7030

== ENCOUNTER 2024-01-16 14:06 | Emergency (ER) | payer OTHER ==
--- OUTSIDE RECORDS SUMMARY | 2024-01-16 14:09 | XMS REPORT | Continuity of Care Document ---
Author Name Unknown Address [address] [facility] [address] [place] [address] [facility] thconnect Address [address] [facility]. [address] [place] [address] Care Team Providers Care Workers Compensation Consultant Name Role Phone Oscar Forbes MD Primary Care Physician [phone] Solomon Stroud MD Attending Clinician + [phone] Doctor Unassigned, Bivins Attending Clinician U Oscar Rashid MD Attending Clinician [phone] BARRETT WISEMAN Attending Clinician Unavailable Barrett Wiseman DO Attending Clinician [phone] Pcp, Patient Does Not Have A Attending Clinician OSCAR FORBES Attending Clinician Unavailable Nelly Mcgill LVN Attending Clinician Eileen Carrera RN Attending Clinician UnavailTamela Do LVN Attending Clinician Unavailabl e LOVE, MARIO S Attending Clinician Unavailable Mario Molina S Attending Clinician LISBET MONGE Attending Clinician Unavailable Lisbet Monge MD Attending Clinician Ethan Acosta Attending Clinician [phone] JEAN ESTES Attending Clinician BARRETT Walton Admitting Clinician Unavailable Payers Payer Name Policy Type Policy Number Effective Date Expirati on Date Source [facility] [id number] 2016 00:00:00 201 05-01-04 00:00:00 Problems Condition Name Condition Details Condition Category Status Onset Date Resolution Date Last Treatment Date Treating Clinician Comments Source Obesity (BMI 30-39.9) Obesity (BMI 30-39.9) Disease Recurre nce 12-12 00:00: 00 [facility] Allergies, Adverse Reactions, Alerts Allergy Name Allergy Type Status Severity Reaction(s) Onset Date Inactive Date Treating Clinician Comments Source Tylenol- Codeine #2 Propensi ty to adverse reaction s Active Unknown - See comments 06-08 00:00: 00 [facility] TYLENOL- CODEINE #2 DRUG Active Unknown-Cmnt 06-08 00:00: 00 [facility] Nitrofur antoin Monohyd/ M-Cryst Propensi ty to adverse reaction s Active Anaphylaxis 11-07 00:00: 00 [facility] NITROFUR ANTOIN MONOHYD/ M-CRYST DRUG Active Anaphylaxis 11-07 00:00: 00 [facility] Nitrofur antoin Monohyd/ M-Cryst Propensi ty to adverse reaction s Active Swelling 10-02 00:00: 00 [facility] NITROFUR ANTOIN MONOHYD/ M-CRYST DRUG Active Swelling 10-02 00:00: 00 [facility] Social History Social Habit Start Date Stop Date Quantity Comments Source Gender identity [facility] SD[facility] Alcohol Frequency [facility] History SDOH Alcohol Std Drinks [facility] History SDOH Alcohol Binge [facility] History of Social function 2023-03-05 00:00:00 2023-03-05 00:00:00 [facility] Exposure to SARS-CoV-2 (event) 2022-11-27 00:00:00 2022-12-07 12:37:00 Not sure [facility] Tobacco use and exposure 2015-11-07 00:00:00 2015-11-07 00:00:00 Smokeless tobacco non-user [facility] Alcohol Comment 2015-11-07 00:00:00 2015-11-07 00:00:00 occasionally [facility] Sex Assigned At 1980 00:00:00 1980 00:00:00 [facility] Smoking Status Start Date Stop Date Source Never smoked tobacco [facility] Medications Ordered Medication Name Filled Medication Name Start Date Stop Date Current Medication? Ordering Clinician Indication Dosage Frequency Signature (SIG) Comments Components Source dextroamphe tamine-amph etamine 30 mg tablet 01-14 00:00: 00 Yes [id number] 30mg Take 1 tablet by mouth in the morning and 1 tablet in the evening. [facility] dextroamphe tamine-amph etamine 30 mg tablet 01-13 00:00: 00 01-14 00:00 :00 No [id number] 30mg Take 1 tablet by mouth in the morning and 1 tablet in the evening. [facility] naproxen sodium 550 mg tablet 01-01 00:00: 00 Yes [id number] 550mg Take 1 tablet by mouth in the morning and 1 tablet in the evening. Take with meals. [facility] methylPREDN ISolone 4 mg tablets 01-01 00:00: 00 Yes [id number] Take by mouth SEE-INSTRU CTIONS. follow package directions [facility] methocarbam oL 500 mg tablet 01-01 00:00: 00 01-07 04:59 :00 Yes [id number] 500mg Take 1 tablet by mouth in the morning and 1 tablet at noon and 1 tablet in the evening. Do all this for 5 days. [facility] dextroamphe tamine-amph etamine 30 mg tablet 0 3-18 00:00: 00 01-13 00:00 :00 No [id number] 30mg Take 1 tablet by mouth in the morning and 1 tablet in the evening. [facility] dextroamphe tamine-amph etamine 30 mg tablet 0 2-22 00:00: 00 12-16 00:00 :00 No [id number] 30mg Take 1 tablet by mouth in the morning and 1 tablet in the evening. [facility] dextroamphe tamine-amph etamine 30 mg tablet 0 1-16 00:00: 00 01-13 00:00 :00 No [id number] 30mg Take 1 tablet by mouth in the morning and 1 tablet in the evening. [facility] dextroamphe tamine-amph etamine 30 mg tablet 2022-10 2-18 00:00: 00 10-16 00:00 :00 No [id number] 30mg Take 1 tablet by mouth in the morning and 1 tablet in the evening. [facility] dextroamphe tamine-amph etamine 30 mg tablet 2022-10 1-20 00:00: 00 09-14 00:00 :00 No [id number] 30mg Take 1 tablet by mouth in the morning and 1 tablet in the evening. [facility] dextroamphe tamine-amph etamine 30 mg tablet 1 0-23 00:00: 00 08-20 00:00 :00 No [id number] 30mg Take 1 tablet by mouth in the morning and 1 tablet in the evening. [facility] dextroamphe tamine-amph etamine 30 mg tablet 0 9-25 00:00: 00 07-23 00:00 :00 No [id number] 30mg Take 1 tablet by mouth in the morning and 1 tablet in the evening. [facility] dextroamphe tamine-amph etamine 30 mg tablet 2022-0 8-28 00:00: 00 06-25 00:00 :00 No [id number] 30mg Take 1 tablet by mouth in the morning and 1 tablet in the evening. [facility] dextroamphe tamine-amph etamine 30 mg tablet 04-30 00:00: 00 05-28 00:00 :00 No [id number] 30mg Take 1 tablet by mouth in the morning and 1 tablet in the evening. [facility] dextroamphe tamine-amph etamine 30 mg tablet 04-02 00:00: 00 04-30 00:00 :00 No [id number] 30mg Take 1 tablet by mouth in the morning and 1 tablet in the evening. [facility] dextroamphe tamine-amph etamine 30 mg tablet 03-05 00:00: 00 04-02 00:00 :00 No [id number] 30mg Take 1 tablet by mouth in the morning and 1 tablet in the evening. [facility] chlorhexidi ne 0.12 % mouthwash 12-07 00:00: 00 Yes [id number] 15mL Swish and spit out 15 mL in the morning and 15 mL in the evening. [facility] clindamycin 150 mg capsule 12-07 00:00: 00 12-18 04:59 :00 No [id number] 450mg Take 3 capsules by mouth in the morning and 3 capsules at noon and 3 capsules in the evening. Do all this for 10 days. [facility] HYDROcodone -acetaminop hen (NORCO) 10-325 mg tablet 1 tablet 10-07 11:30: 00 10-07 10:19 :00 No 1{tbl} 1 tablet, Oral, ONCE, 1 dose, On Sun10/07/21 at 0530, Routine [facility] penicillin v potassium 500 mg tablet 10-07 00:00: 00 Yes [id number] 500mg Take 1 tablet by mouth 4 (four) times daily. [facility] traMADoL (ULTRAM) 50 mg tablet 10-07 00:00: 00 Yes [id number] 50mg Take 1 tablet by mouth every 6 (six) hours as needed for Pain (scale 7-10). Indication s: acute pain [facility] ibuprofen 800 mg tablet 10-07 00:00: 00 Yes [id number] 800mg Take 1 tablet by mouth every 8 (eight) hours as needed for Pain (scale 4-6). [facility] ibuprofen 800 mg tablet 06-08 00:00: 00 Yes [id number] 800mg Take 1 tablet by mouth every 8 (eight) hours as needed for Pain (scale 4-6). [facility] chlorhexidi ne 0.12 % mouthwash 06-08 00:00: 00 12-07 00:00 :00 No [id number] 15mL Swish and spit out 15 mL 2 (two) times daily. [facility] traMADoL (ULTRAM) 50 mg tablet 06-08 00:00: 00 06-16 04:59 :00 No [id number] 50mg Take 1 tablet by mouth every 6 (six) hours as needed for Pain (scale 7-10) for up to 7 days. Indication s: acute pain [facility] penicillin v potassium 250 mg tablet 06-08 00:00: 00 06-16 04:59 :00 No [id number] 500mg Take 2 tablets by mouth 4 (four) times daily for 7 days. [facility] traMADOL (ULTRAM) 50 mg tablet 11-02 00:00: 00 Yes 50mg Take 1 tablet by mouth every 6 (six) hours as needed for Pain (scale 7-10). [facility] ondansetron (ZOFRAN, HYDROCHLORI DE,) 4 mg tablet 11-02 00:00: 00 Yes 4mg Take 1 tablet by mouth every 8 (eight) hours as needed for Nausea and Vomiting (N/V). [facility] proMETHazin e 25 mg tablet 10-06 00:00: 00 Yes 25mg Take 1 tablet by mouth every 6 (six) hours as needed for Nausea and Vomiting (N/V). [facility] sod chlor-bicar b-squeez bottle (NEILMED SINUS RINSE COMPLETE) pkdv 10-06 00:00: 00 Yes 1{bottl e} Use 1 Bottle in each nostril 2 (two) times daily. Use in hot shower 1 hour before bedtime [facility] promethazin e-codeine 6.25-10 mg/5 mL syrup 10-06 00:00: 00 Yes 5mL Take 5 mL by mouth 4 (four) times daily as needed for Cough. [facility] sod chlor-bicar b-squeez bottle (NEILMED SINUS RINSE COMPLETE) pkd 10-06 00:00: 00 Yes 1{bottl e} Use 1 Bottle in each nostril 2 (two) times daily. Use in hot shower 1 hour before bedtime [facility] Vital Signs Vital Name Observation Time Observation Value Comments S ource Systolic blood pressure 2024-01-02 18:01:00 134 mm[Hg] [facility] Diastolic blood pressure 2024-01-02 18:01:00 86 mm[Hg] [facility] Heart rate 2024-01-02 18:01:00 98 /min [facility] Body temperature 2024-01-02 18:01:00 36.39 Lilli [facility] Respiratory rate 2024-01-02 18:01:00 19 /min [facility] Body height 2024-01-02 18:01:00 160 cm [facility] Body weight 2024-01-02 18:01:00 79.379 kg [facility] BMI 2024-01-02 18:01:00 31.00 kg/m2 [facility] Oxygen saturation in Arterial blood by Pulse oximetry 2024-01-02 18:01:00 99 /min [facility] Systolic blood pressure 2023-11-22 13:35:00 137 mm[Hg] [facility] Diastolic blood pressure 2023-11-22 13:35:00 81 mm[Hg] [facility] Heart rate 2023-11-22 13:34:00 70 /min [facility] Body height 2023-11-22 13:34:00 160 cm [facility] Body weight 2023-11-22 13:34:00 80.341 kg [facility] BMI 2023-11-22 13:34:00 31.38 kg/m2 [facility] Oxygen saturation in Arterial blood by Pulse oximetry 2023-11-22 13:34:00 97 /min [facility] Systolic blood pressure 2023-05-14 18:12:00 156 mm[Hg] [facility] Diastolic blood pressure 2023-05-14 18:12:00 106 mm[Hg] [facility] Heart rate 2023-05-14 18:07:00 98 /min [facility] Body height 2023-05-14 18:07:00 160 cm [facility] Body weight 2023-05-14 18:07:00 75.116 kg [facility] BMI 2023-05-14 18:07:00 29.33 kg/m2 [facility] Oxygen saturation in Arterial blood by Pulse oximetry 2023-05-14 18:07:00 98 /min [facility] Systolic blood pressure 2023-03-05 18:10:00 141 mm[Hg] [facility] Diastolic blood pressure 2023-03-05 18:10:00 94 mm[Hg] [facility] Heart rate 2023-03-05 18:09:00 75 /min [facility] Respiratory rate 2023-03-05 18:09:00 18 /min [facility] Body height 2023-03-05 18:09:00 160 cm [facility] Body weight 2023-03-05 18:09:00 79.697 kg [facility] BMI 2023-03-05 18:09:00 31.12 kg/m2 [facility] Oxygen saturation in Arterial blood by Pulse oximetry 2023-03-05 18:09:00 98 /min [facility] Systolic blood pressure 2022-12-07 17:52:00 148 mm[Hg] [facility] Diastolic blood pressure 2022-12-07 17:52:00 97 mm[Hg] [facility] Heart rate 2022-12-07 17:52:00 76 /min [facility] Body temperature 2022-12-07 17:52:00 36.39 Lilli [facility] Respiratory rate 2022-12-07 17:52:00 19 /min [facility] Body height 2022-12-07 17:52:00 160 cm [facility] Body weight 2022-12-07 17:52:00 80.74 kg Univ [facility] BMI 2022-12-07 17:52:00 31.53 kg/m2 [facility] Oxygen saturation in Arterial blood by Pulse oximetry 2022-12-07 17:52:00 100 /min [facility] Systolic blood pressure 2021-10-07 10:09:00 155 mm[Hg] [facility] Diastolic blood pressure 2021-10-07 10:09:00 109 mm[Hg] [facility] Heart rate 2021-10-07 10:09:00 87 /min [facility] Body temperature 2021-10-07 10:09:00 37 Lilli [facility] Respiratory rate 2021-10-07 10:09:00 18 /min [facility] Body height 2021-10-07 10:09:00 160 cm [facility] Body weight 2021-10-07 10:09:00 81.647 kg [facility] BMI 2021-10-07 10:09:00 31.89 kg/m2 [facility] Oxygen saturation in Arterial blood by Pulse oximetry 2021-10-07 10:09:00 98 /min [facility] Systolic blood pressure 2021-06-08 15:28:00 139 mm[Hg] [facility] Diastolic blood pressure 2021-06-08 15:28:00 103 mm[Hg] [facility] Heart rate 2021-06-08 15:28:00 71 /min [facility] Body temperature 2021-06-08 15:28:00 37.17 Lilli [facility] Respiratory rate 2021-06-08 15:28:00 18 /min [facility] Body weight 2021-06-08 15:28:00 86.183 kg [facility] BMI 2021-06-08 15:28:00 33.66 kg/m2 [facility] Oxygen saturation in Arterial blood by Pulse oximetry 2021-06-08 15:28:00 97 /min [facility] Procedures Procedure Date / Time Performed Performing Clinicia n Source XR ANKLE <3 VW LEFT 2024-01-02 18:21:24 Edy Wiseman [facility] CONSENT/REFUSAL FOR DIAGNOSIS AND TREATMENT 2022-12-07 17:40:22 Doctor Unassigned, Bivins [facility] CONSENT/REFUSAL FOR DIAGNOSIS AND TREATMENT 2021-10-07 10:01:27 Doctor Unassigned, Bivins [facility] NOTICE OF PRIVACY PRACTICES 2021-06-08 15:24:31 Doctor Unassigned, Bivins [facility] CONSENT/REFUSAL FOR DIAGNOSIS AND TREATMENT 2021-06-08 15:24:01 Doctor Unassigned, Bivins [facility] Encounters Start Date/Time End Date/Time Encounter Type Admission Type Attending [facility] Care Facility Care Department Encounter ID Source 2024-01-15 00:00:00 2024-01-15 00:00:00 Telephone Solomon Stroud [facility] 1.2.840.114 350.1.13.10 4.2.7.2.686 [id number] [facility] 2024-01-14 00:00:00 2024-01-14 00:00:00 Patient Secure Msg Doctor Unassigned, Bivins [facility] 1.2.840.114 350.1.13.10 4.2.7.2.686 [id number] [facility] 2024-01-14 00:00:00 2024-01-14 00:00:00 Refill Oscar Forbes [facility] 1.2.840.114 350.1.13.10 4.2.7.2.686 [id number] [facility] 2024-01-14 00:00:00 2024-01-14 00:00:00 [facility]ill [facility] 1.2.840.114 350.1.13.10 4.2.7.2.686 [id number] [facility] 2024-01-14 00:00:00 2024-01-14 00:00:00 [facility]ill [facility] 1.2.840.114 350.1.13.10 4.2.7.2.686 [id number] [facility] 2024-01-14 00:00:00 2024-01-14 00:00:00 Refill BradvictoriajohnSolomon Germán [facility] REGINA?[facility] 1.2.840.114 350.1.13.10 4.2.7.2.686 [id number] [facility] 2024-01-14 00:00:00 2024-01-14 00:00:00 Patient Secure Msg Doctor Unassigned, Bivins [facility] 1.2.840.114 350.1.13.10 4.2.7.2.686 [id number] [facility] 2024-01-14 00:00:00 2024-01-14 00:00:00 Patient Secure Msg Doctor Unassigned, Bivins [facility] REGINA?[facility] 1.2.840.114 350.1.13.10 4.2.7.2.686 [id number] [facility] 2024-01-11 15:54:45 2024-01-11 15:54:45 Outpatient [facility] [id number] Robert Freeman 2024-01-10 00:00:00 2024-01-10 00:00:00 Patient Secure Msg Doctor Unassigned, Bivins [facility] 1.840.114 350.1.13.10 4.2.7.2.686 [id number] [facility] 2024-01-10 00:00:00 2024-01-10 00:00:00 Refill Oscar Forbes [facility] REGINA?[facility] 1.84.114 350.1.13.10 4.2.7.2.686 [id number] [facility] 2024-01-02 13:05:00 2024-01-02 14:47:00 Emergency X BARRETT WISEMAN [facility] ERT [id number] [facility] 2024-01-02 13:05:00 2024-01-02 14:47:00 Emergency Barrett Wiseman [facility] 1.84.114 350.1.13.10 4.2.7.2.686 [id number] [facility] 2023-12-17 00:00:00 2023-12-17 00:00:00 Refill Pcp, Patient Does Not Have A [facility] 1..840.114 350.1.13.10 4.2.7.2.686 [id number] [facility] 2023-12-11 14:03:41 2023-12-11 14:03:41 Outpatient [facility] [id number] Robert Amaral Pete 2023-11-22 07:30:00 2023-11-22 07:45:00 Office Visit [facility] 1..840.114 350.1.13.10 4.2.7.2.686 [id number] [facility] 2023-11-22 07:30:00 2023-11-22 07:30:[address] [facility] [id number] [facility] 2023-11-08 16:46:08 2023-11-08 16:46:08 Outpatient [facility] [id number] Robert Freeman 2023-10-31 15:00:00 2023-10-31 15:00:[address] [facility] [id number] [facility] 2023-10-24 14:45:00 2023-10-24 14:45:[address] [facility] [id number] [facility] 2023-10-16 00:00:00 2023-10-16 00:00:00 [facility]ill [facility] 1.2.840.114 350.1.13.10 4.2.7.2.686 [id number] [facility] 2023-10-16 00:00:00 2023-10-16 00:00:00 Refill Dandre Oscar [facility] REGINA?[facility] 1.2.840.114 350.1.13.10 4.2.7.2.686 [id number] [facility] 2023-10-03 14:32:42 2023-10-03 14:32:42 Outpatient [facility] [id number] Robert Freeman 2023-09-14 00:00:00 2023-09-14 00:00:00 Refill Pcp, Patient Does Not Have A [facility] REGINA?[facility] 1.2.840.114 350.1.13.10 4.2.7.2.686 [id number] [facility] 2023-09-03 14:37:55 2023-09-03 14:37:55 Outpatient [facility] [id number] Robert Freeman 2023-08-20 00:00:00 2023-08-20 00:00:00 Refill Dandre [facility] REGINA?[facility] 1.2.840.114 350.1.13.10 4.2.7.2.686 [id number] [facility] 2023-08-06 14:51:08 2023-08-06 14:51:08 Outpatient [facility] [id number] Robert Freeman 2023-07-23 00:00:00 2023-07-23 00:00:00 Refill Dandre [facility] REGINA?[facility] 1.2840.114 350.1.13.10 4.2.7.2.686 [id number] [facility] 2023-07-05 15:13:42 2023-07-05 15:13:42 Outpatient [facility] [id number] Robert Freeman 2023-06-25 00:00:00 2023-06-25 00:00:00 Refill Pcp, Patient Does Not Have A [facility] 1.2840.114 350.1.13.10 4.2.7.2.686 [id number] [facility] 2023-05-30 13:48:08 2023-05-30 13:48:08 Outpatient [facility] [id number] Robert Freeman 2023-05-28 00:00:00 2023-05-28 00:00:00 Refill Nelly Mcgill [facility] 1.2840.114 350.1.13.10 4.2.7.2.686 [id number] [facility] 2023-05-28 00:00:00 2023-05-28 00:00:00 [facility] 1.2840.114 350.1.13.10 4.2.7.2.686 [id number] [facility] 2023-05-25 00:00:00 2023-05-25 00:00:00 Telephone Oscar Forbes [facility] REGINA?[facility] 1.84.114 350.1.13.10 4.2.7.2.686 [id number] [facility] 2023-05-14 13:15:00 2023-05-14 13:30:00 [facility] Visit [facility] 1.84.114 350.1.13.10 4.2.7.2.686 [id number] [facility] 2023-05-14 13:15:00 2023-05-14 13:15:00 Outpatient R OSCAR [facility] [id number] [facility] 2023-05-03 15:35:40 2023-05-03 15:35:40 Outpatient [facility] [id number] Robert Freeman 2023-05-03 13:00:00 2023-05-03 13:00:00 Outpatient R [facility] [id number] [facility] 2023-04-30 00:00:00 2023-04-30 00:00:00 Telephone Oscar Forbes [facility] REGINA?[facility] 1.84.114 350.1.13.10 4.2.7.2.686 [id number] [facility] 2023-04-30 00:00:00 2023-04-30 00:00:00 Nelly Charles [facility] 1.2.114 350.1.13.10 4.2.7.2.686 [id number] [facility] 2023-04-26 00:00:00 2023-04-26 00:00:00 Eileen Goodrich [facility] 1.2.114 350.1.13.10 4.2.7.2.686 [id number] [facility] 2023-04-26 00:00:00 2023-04-26 00:00:00 Refill Peri Tamela [facility] 1.2.840.114 350.1.13.10 4.2.7.2.686 [id number] [facility] 2023-04-05 10:54:45 2023-04-05 10:54:45 Outpatient [facility] [id number] Robert Freeman 2023-04-02 00:00:00 2023-04-02 00:00:00 Refill D[facility] 1.2.840.114 350.1.13.10 4.2.7.2.686 [id number] [facility] 2023-03-29 00:00:00 2023-03-29 00:00:00 Refill Dandre [facility] 1.2.840.114 350.1.13.10 4.2.7.2.686 [id number] [facility] 2023-03-08 10:52:01 2023-03-08 10:52:01 Outpatient [facility] [id number] Robert Freeman 2023-03-05 13:00:00 2023-03-05 13:30:00 Office Visit [facility] MED[facility] OFF[facility] BUILDING 1.2.840.114 350.1.13.10 4.2.7.2.686 [id number] [facility] 2023-03-05 13:00:00 2023-03-05 13:00:[address] [facility] [id number] [facility] 2023-02-13 00:00:00 2023-02-13 00:00:00 Telephone Forbes, Oscar [facility] 1.2.840.114 350.1.13.10 4.2.7.2.686 [id number] [facility] 2023-02-07 10:04:32 2023-02-07 10:04:32 Outpatient [facility] 0510 Robert Amaral [place] 2023-01-10 10:28:33 2023-01-10 10:28:33 Outpatient [facility] 0412 Robert Amaral [place] 2022-12-13 10:10:18 2022-12-13 10:10:18 Outpatient [facility] 0315 Robert Amaral [place] 2022-12-07 11:54:00 2022-12-07 12:48:00 Emergency X MARIO LOVE [facility] ERT [id number] [facility] 2022-12-07 11:54:00 2022-12-07 12:48:[address] [facility] 1.2.840.114 350.1.13.10 4.2.7.2.686 [id number] [facility] 2022-10-16 13:14:20 2022-10-16 13:14:20 Outpatient [facility] [id number] Robert Amaral [place] 2022-10-03 13:01:55 2022-10-03 13:01:55 Outpatient [facility] 0103 Robert Freeman 2022-08-23 11:21:43 2022-08-23 11:21:43 Outpatient [facility] [id number] Robert Freeman 2022-07-22 09:53:57 2022-07-22 09:53:57 Outpatient [facility] 1022 Robert Freeman 2022-07-21 11:04:33 2022-07-21 11:04:33 Outpatient [facility] 1021 Robert Freeman 2021-10-07 04:15:00 2021-10-07 04:52:00 Emergency X LISBET MONGE [facility] ERT [id number] [facility] 2021-10-07 04:15:00 2021-10-07 04:52:00 Emergency Lisbet Monge [facility] 1.2.840.114 350.1.13.10 4.2.7.2.686 [id number] [facility] 2021-06-08 10:30:00 2021-06-08 11:02:00 Emergency Ethan Singh [facility] 1.2.840.114 350.1.13.10 4.2.7.2.686 [id number] [facility] 2021-06-08 10:24:00 2021-06-08 10:24:00 Emergency X [facility] ERT [id number] [facility] 2017-01-27 03:46:13 2017-01-27 08:32:00 Emergency X JEAN ESTES [facility] ERT [id number] [facility] Results Test Description Test Time Test Comments Results Resul t Comments Source XR ANKLE <3 VW LEFT 2024-01-02 18:38:53 HISTORY: Trauma. FINDINGS: AP and lateral views of left ankle showed no acute fracture ordislocation. No significant ankle joint effusion. No heel spur.Retrocalcan eal exostosis in the lower Achilles tendon noted. CONCLUSIONS: No acute fracture or dislocation in 2 views of left ankle. [facility] Notes Date/Time Note Provider Source 2024-01-15 10:28:17 CD6oe9L9GA80i9jHNdbAR6Zg2usZj9EnFG5S Si0nYXnnlmYteRSAqWznECBNDXKc2111-33- 16T10:28:17 Please re-send 43570-5Xdtnakfov encounter SkmhKN5933-43-15B78:28:24Telephone encounter NoteTXT1.2.840.939716.1.13.104.2.7.2 .704892|[id number] for patient srkt22209-4OtnqKLWILUPRPPBCpmhvitum C-CDA narrative textRICK48 Rojas [id number] POSJGFDDMTUQUJKWJEFBDP4330-45-40A21: 28:241.2.840.798573.1.72.3.15|1.2.84 0.311819.1.13.104.2.7.2.727879_20755 [id number] [facility] 2024-01-15 10:20:26 SkPiw4JMCsBd/sEwzKM58Dc93JkK3owe7d7j ctPRZ3doQSf3lKuJSpQ9WSPlZgUV6151-53- 16T10:20:26 Renata Fried is a 43 year old female and [facility] pharmacy is calling to request a call back to speak with a nurse to resolve the pts medication refill request for dextroamphetamine-amphetamine 30 mg tablet.Pharmacy stated that the refill was sent in 3 times and then cancelled by subscriber and they are unable to fill the medication for the pt. Please call back as soon as possible.[facility] [id number] - [place], [place] - [facility] [facility] [id number] [facility] [address]Fcwzn: [phone] Skfzigrwbvntca signed by Jessi Arboleda at 01/15/2024 10:23 AM LBO35426-3Dwjfuerdc encounter WdfzKP3022-58-00B50:23:32Telephone encounter NoteTXT1.2.840.617561.1.13.104.2.7.2 .648871|[id number] for patient vfle11111-5GhuhVRHOSQTNFJJBhemjbxzn C-CDA narrative hcvk13326312Evubgme S DallyUT[id number] KWCNTPJNUPKDSXIPZIOVSH2696-84-63I20: 23:321.2.840.946939.1.72.3.15|1.2.84 0.208476.1.13.104.2.7.2.727879_20754 [id number] Jessi Arboleda [facility] 2024-01-14 19:26:24 Ld9JxP4AYyJFH19mWmgFlz7FPTO79yHifa7P fRx3vbsvSnFTj3yZZngxHuo3pv8Q2027-01- 15T19:26:24 Refill Request:Requested PrescriptionsPending Prescriptions Disp Refillsdextroamphetamine-amphetamine 30 mg tablet 60 tablet 0Sig: Take 1 tablet by mouth in the morning and 1 tablet in the evening.Duplicate request. 28654-0Ccqkipiid encounter TgfrIE9033-35-78C59:28:33Telephone encounter NoteTXT1.2.840.976274.1.13.104.2.7.2 .083961|[id number] for patient vozq42152-6DpuuAPVHFIDUBFKBythilhjy C-CDA narrative aqzk727107938Givyygt Gutierrez RNUT[id number] LJPAPQFYZYPMCNJSRCCPAY1496-47-52A20: 28:331.2.840.668444.1.72.3.15|1.2.84 0.009752.1.13.104.2.7.2.727879_20749 [id number] Tahira Montero RN [facility] 2024-01-14 13:33:54 bh2tAtvkGsN4d0YfS/KhKMXzUse7Ze75wAMN WvLzWj0bpY05o3Q8dVmuHXWdY3pL1575-87- 15T13:33:54 Can you please refill patients adderall 06943-3Ozoxtbgna encounter FwexNE2007-42-64E01:34:07Telephone encounter NoteTXT1.2.840.151929.1.13.104.2.7.2 .243030|[id number] for patient sbet02195-7OsarXXVTACMCIEADozhwmeqt C-CDA narrative text[id number] PMUQSUGCFOQPLWSTATICYS7302-10-93X82: 34:071.2.840.634865.1.72.3.15|1.2.84 0.506759.1.13.104.2.7.2.727879_20746 48423 [facility] 2024-01-14 13:26:37 xHzK6HkzSOGOxqqQT0Bwwldz2RcwYd2tUMwb ULg1oxV6yzm+79YuSu1YKlxmdZvY9692-04- 15T13:26:37 Pt calling to see if there's an update on her previous request for adderall refill.Please F/u 12820-6Lnwrqetml encounter SdugXX9150-55-32A51:28:44Telephone encounter NoteTXT1.2.840.823307.1.13.104.2.7.2 .906629|[id number] for patient xgte11149-5LztzVHMSPNQRAOLXxpxmntmf C-CDA narrative kzpa73407876Usfpkf Hernandez[id number] VUFUPXZMICMBBJVJAVRAPJ2664-38-68M66: 28:441.2.840.406164.1.72.3.15|1.2.84 0.301464.1.13.104.2.7.2.727879_20746 44725 Art Noe [facility] 2024-01-14 08:09:52 HRL3EXl4Blvcwn+vmPW5WHmh8cRLZfRwwOLJ zIBwGvC25+Ffj0OtrAqWsJ6rHYKo0296-25- 15T08:09:52 From: Renata Jaramillo: Office of BHARATH Mishraent: 01/14/2024 7:24 AM CDTSubject: Medication Renewal RequestRefills have been requested for the following medications:dextroamphetamine-amphet amine 30 mg tablet [Oscar Forbes]Preferred pharmacy: [facility] [id number] [place] [address] [address] [facility] [address] Murphy method: PickupRecent VisitsDate Type Provider Dept11/22/23 Office Visit Oscar Forbes MD [facility] Med05/14/23 Office Visit Oscar Forbes MD [facility] Med03/05/23 Office Visit Oscar Forbes MD [facility] MedShowing recent visits within past 540 days with a meds authorizing provider and meeting all other requirementsFuture AppointmentsNo visits were found meeting these conditions.Showing future appointments within next 150 days with a meds authorizing provider and meeting all other requirements 23703-5Rcieqsxlt encounter JlhcZA4630-38-55U71:10:01Telephone encounter NoteTXT1.2.840.640848.1.13.104.2.7.2 .753247|[id number] for patient fadn22105-1NggjLJGVRNAFCDZPmvelkubx C-CDA narrative textUT[address] Bqz[id number] PNBOEHGNHFHPVAZMVUYAGV8881-37-49N99: 10:011.2.840.163123.1.72.3.15|1.2.84 0.005780.1.13.104.2.7.2.727879_20741 69394 [facility] 2024-01-14 08:07:27 oV+Vh9dznrLkUTuqnlfpnmtQ0fVxjRsT04bn W9wfpxAIw7QJTKvNbqepGr7i4mD19035-78- 15T08:07:27 From: Renata Jaramillo: Office of BHARATH Mishraent: 01/13/2024 11:00 PM CDTSubject: Medication Renewal RequestRefills have been requested for the following medications:dextroamphetamine-amphet amine 30 mg tablet [Oscar Forbes]Preferred pharmacy: [facility] [id number] [place] [address] [address] [facility] [address] Murphy method: PickupRecent VisitsDate Type Provider Dept11/22/23 Office Visit Osacr Forbes MD [facility] Med05/14/23 Office Visit Oscar Forbes MD [facility]03/05/23 Office Visit Oscar Forbes MD [facility] MedShowing recent visits within past 540 days with a meds authorizing provider and meeting all other requirementsFuture AppointmentsNo visits were found meeting these conditions.Showing future appointments within next 150 days with a meds authorizing provider and meeting all other requirements 23833-8Qtcnhkwje encounter JncfPG7324-98-70D97:07:36Telephone encounter NoteTXT1.2.840.466309.1.13.104.2.7.2 .160749|[id number] for patient mlqz20756-4AowwTDJNTJLSWFMIefzfphks C-CDA narrative textUT[address] Ng[id number] RZPKAIIYZXHVSXFHIOCLOS2151-08-65G43: 07:361.2.840.359476.1.72.3.15|1.2.84 0.937813.1.13.104.2.7.2.727879_20741 29628 [facility] 2024-01-14 08:02:26 Q5FHZbwWq69DZ9rLcLfIWXNGxpB/Nhgq9PXM rEiYiY3xvcIFYH5J8O+ps313f0o+T08:02:26 From: Renata Jaramillo: Office of BHARATH Mishraent: 01/12/2024 9:24 AM CDTSubject: Medication Renewal RequestRefills have been requested for the following medications:dextroamphetamine-amphet amine 30 mg tablet [Oscar Forbes]Preferred pharmacy: [facility] [id number] [place] [address] [address] [facility] [address] Murphy method: PickupRecent VisitsDate Type Provider Dept11/22/23 Office Visit Oscar Forbes MD [facility] Med05/14/23 Office Visit Oscar Forbes MD [facility] Med03/05/23 Office Visit Oscar Forbes MD [facility] MedShowing recent visits within past 540 days with a meds authorizing provider and meeting all other requirementsFuture AppointmentsNo visits were found meeting these conditions.Showing future appointments within next 150 days with a meds authorizing provider and meeting all other requirements 62806-1Vtpjeqpcp encounter KcyxCR5919-46-86Y94:02:35Telephone encounter NoteTXT1.2.840.473600.1.13.104.2.7.2 .787158|[id number] for patient hnvq56098-3DvcmBDDGBTPLQKTKoollvrkk C-CDA narrative textUT[address] Uphb[id number] RMPIAYRLFRNBNZMUXFQMEG3786-66-54L74: 02:351.2.840.542988.1.72.3.15|1.2.84 0.650321.1.13.104.2.7.2.727879_20741 23129 [facility] 2024-01-10 13:55:38 yiuKrkNZ1IP7x478tJrHOArdu2yeSbI1dp9V Z9y7K+DFdJgSlZomczFGocAR1t6j3640-03- 11T13:55:38 Disp Refills Start End DAWdextroamphetamine-amphetamine 30 mg tablet 60 tablet 0 12/17/2023 -- --Sig: Take 1 tablet by mouth in the morning and 1 tablet in the evening.Recent VisitsDate Type Provider Dept11/22/23 Office Visit Oscar Forbes MD [facility] Med05/14/23 Office Visit Oscar Forbes MD [facility] Med03/05/23 Office Visit Oscar Forbes MD [facility] MedShowing recent visits within past 540 days with a meds authorizing provider and meeting all other requirementsFuture AppointmentsNo visits were found meeting these conditions.Showing future appointments within next 150 days with a meds authorizing provider and meeting all other requirements 63072-1Jbgyalypb encounter SrlfUF6654-50-83I15:55:56Telephone encounter NoteTXT1.2.840.785876.1.13.104.2.7.2 .101464|[id number] for patient hzby38705-8EhojAMMOSKOYXNDSkgpudjkr C-CDA narrative fycj264264723Zegkjga R Leon MA[address] Gdgq[id number] XRDXNEKJEPAWWVMYFIXLOC4178-81-90P92: 55:561.2.840.264945.1.72.3.15|1.2.84 0.392428.1.13.104.2.7.2.727879_20722 99816 Jessika Yang MA [facility] 2024-01-10 12:48:09 Uc3Qf6iXKA0GGypf7ow4x9sHRH8uHXiEgWzG Fqn6x29CFvVhjxB7rbOGbvO+Fgwm8218-24- 11T12:48:09From: Renata Jaramillo: Office of BHARATH Mishraent: 01/10/2024 12:13 PM CDTSubject: Medication Renewal RequestRefills have been requested for the following medications:dextroamphetamine-amphet amine 30 mg tablet [Oscar Forbes]Preferred pharmacy: [facility] [id number] [place] [address] [address] [facility] [address] Murphy method: Pickup 59241-5Iuuplrhvk encounter CjqwSN3123-43-45M54:48:09Telephone encounter NoteTXT1.2.840.385128.1.13.104.2.7.2 .472877|[id number] for patient cvxu99538-2NgmkVWWECJMARVNAhhypcfuw C-CDA narrative textUT[address] VmdvA[id number] MYPTMREVIJJNCCSVGRPGMX8698-89-18P81: 48:091.2.840.334814.1.72.3.15|1.2.84 0.648559.1.13.104.2.7.2.727879_20721 [address] [facility] 2024-01-02 14:46:28 1dQpwTxsmn+tTHi9Wkzch5oYwWn7tMJ+C60C c3XGW4iBjqjNa6eA4sVtRaadB5/Z2330-84- 03T14:46:28 Pt discharged with diagnosis of abrasion of L ankle. Printed and verbal instructions reviewed with and given to pt. Prescriptions given x 3. Pt verbalized understanding of teaching, medications, and recommended follow-up. Denies questions or concerns at this time. Pt assisted to POV in wheelchair at discharge. Appears in no apparent distress. No ataxia noted. Accompanied by family. 27354-5Yghezkimp department VibnUE3595-38-34Z89:47:09[facility] department NoteTXT1.2.840.307797.1.13.104.2.7.2 .060891|[id number] for patient myoh36449-3FqxxTBWPNHFWBIPSgvwhpnez C-CDA narrative text[id number] UERBFSGJKGZIHXLOFLDFGX0252-32-76E44: 47:091.2.840.080111.1.72.3.15|1.2.84 0.026632.1.13.104.2.7.2.727879_20651 58666 [facility] 2024-01-02 13:00:03 ILJsUJbi0fDT9JlZhtL+Cj2XfJIphk2E0qDG anRpjmGrNZFDeo5v2C8uQXhMWv6Q6607-96- 03T13:00:03 Pt to ED CO L ankle pain s/p injury with kang. Pt states the sharp part impacted her ankle. Unable to bear weight. Applied ice and rafa wrap FAMILY PARTNER. Injury occurred approx 1100 today. 62840-9Ejbpnwxkq department Triage qdluEX2677-57-18S51:01:25[facility] department Triage noteTXT1.2.840.162426.1.13.104.2.7.2 .264555|[id number] for patient zcyx34668-4Dggcfrcte department NoteLNNARRATIVEFormatted C-CDA narrative rwbq509867945Dqsmeb R Potter RNUT[address] EtxrAlrcwltlsWiftwkmxjYOVO8672555028 WJXZTMHLMVWDQEEPJAUMAH3769-49-18G90: 01:251.2.840.005457.1.72.3.15|1.2.84 0.635456.1.13.104.2.7.2.727879_20650 06022 Becca Benedict RN [facility] 2024-01-02 12:57:00 RlI76s3zIjEJGo0L4yKZAvynaJhrgqgtj1Vl w76ZLFu2xM/gwHWTkGhTwR5qj3GO8646-24- 03T12:57:00 [facility] Emergency Department NotePatient Name: Renata FriedDate of : 1980 43 year old femaleTreatment Room: [facility] Record Number: [id number] Care Physician: Oscar ForbesPatient Escorted by: Family [5]Mode of Arrival: Personal means [1]EMS Treatment Prior to ED Arrival:FAMILY PARTNER treatment: Medication (comment)FAMILY PARTNER treatment comments: daily medsTravel and Exposure Screening:SymptomsDoes patient have any of these symptoms?: (not recorded)Exposure ScreeningHas patient had contact with someone with a communicable disease in the last month?: (not recorded)Diseases exposed to:: (not recorded)Is Patient ?: (not recorded)Exposure Date: (not recorded)Chief Complaint:Chief ComplaintPatient presents withAnkle PainLHistory of Present Illness:Renata Fried is a 43 year old female with left ankle pain and abrasion. Hit with wilber while moving. No obvious fracture.Past Medical History/Immunizations:Past Medical History:Diagnosis DateADHD (attention deficit hyperactivity disorder)H. pylori infectionTetanus received in last 5 years: YesChildhood immunizations: Sn-nf-xhrgXyesufhlp:AllergiesAllerge n ReactionsMacrobid [Nitrofurantoin Monohyd/M-Cryst] SwellingMacrobid [Nitrofurantoin Monohyd/M-Cryst] AnaphylaxisTylenol-Codeine #2 Unknown - See commentsPast Social History:Tobacco UseNever smoked or used smokeless tobacco.Alcohol UseComments: occasionallyDrug UseNo.Past Surgical History:Past Surgical History:Procedure Laterality DateBREAST SURGERYaugmentationCESAREAN SECTIONTUBAL LIGATIONReview of Systems:Review of SystemsMusculoskeletal: Positive for arthralgias. Negative for joint swelling and myalgias.Skin: Positive for wound.Neurological: Negative for weakness and numbness.Physical Exam:ED Triage Vitals [01/02/24 1301]Weight 79.4 kg (175 lb)Actual or estimated Estimated by patient/family reportHeight 1.6 m (5' 3")BP 134/86Pulse 98Resp 19Temp 36.4 ?C (97.5 ?F)Temp source OralSpO2 99 %Measured on Room airPhysical ExamConstitutional:General: She is not in acute distress.Appearance: She is well-developed.HENT:Head: Normocephalic and atraumatic.Eyes:Pupils: Pupils are equal, round, and reactive to light.Cardiovascular:Rate and Rhythm: Normal rate.Pulmonary:Effort: Pulmonary effort is normal.Abdominal:General: There is no distension.Musculoskeletal:General: Swelling, tenderness and signs of injury (small superficial abrasion left lateral ankle) present. No deformity. Normal range of motion.Cervical back: Normal range of motion.Skin:General: Skin is warm and dry.Neurological:Mental Status: She is alert and oriented to person, place, and time.Radiology:XR ANKLE <3 VW LEFTFinal ResultHISTORY: Trauma.FINDINGS: AP and lateral views of left ankle showed no acute fracture ordislocation. No significant ankle joint effusion. No heel spur.Retrocalcaneal exostosis in the lower Achilles tendon noted.CONCLUSIONS: No acute fracture or dislocation in 2 views of left ankle.Lab Results:Lab Results - No data to displayEKG:If EKG completed, see Procedure Note.Orders and Treatments:Orders Placed This EncounterProceduresXR ANKLE <3 VW LEFTOrders Placed This EncounterMedicationsnaproxen sodium 550 mg tabletmethylPREDNISolone 4 mg tabletsmethocarbamoL 500 mg tabletFirst Provider Eval:ED EventsDate/Time Event User Zwhvcexj17/03/24 1301 Medical Screening Begins BARRETT WISEMAN --01/02/24 1301 First Provider Evaluation BARRETT WISEMAN --ED COURSEDiagnosis/Impression as of 01/02/24 1346Acute left ankle painAbrasion of left ankle, initial encounterProcedures:ProceduresMDM:Mo dical Decision MakingChristy Elena Fried is a 43 year old female with superficial abrasion and contusion. Air cast. WBAT. Anaprox, medrol, robaxin. Stable for discharge.Problems Addressed:Abrasion of left ankle, initial encounter: acute illness or injuryAcute left ankle pain: acute illness or injuryAmount and/or Complexity of Data ReviewedRadiology: ordered.RiskPrescription drug management.Flowsheet Documentation:Scoring Tools:No data recordedDisposition/Condition:ED DispositionED DispositionDisch - HomeConditionStableComment--Discharg e Medications:Patient's MedicationsSTART taking these medicationsMETHOCARBAMOL 500 MG TABLET Take 1 tablet by mouth in the morning and 1 tablet at noon and 1 tablet in the evening. Do all this for 5 days.METHYLPREDNISOLONE 4 MG TABLETS Take by mouth SEE-INSTRUCTIONS. follow package directionsNAPROXEN SODIUM 550 MG TABLET Take 1 tablet by mouth in the morning and 1 tablet in the evening. Take with meals.CONTINUE taking these medications which have NOT CHANGEDCHLORHEXIDINE 0.12 % MOUTHWASH Swish and spit out 15 mL in the morning and 15 mL in the evening.DEXTROAMPHETAMINE-AMPHETAMIN E 30 MG TABLET Take 1 tablet by mouth in the morning and 1 tablet in the evening.DEXTROAMPHETAMINE-AMPHETAMIN E 30 MG TABLET Take 1 tablet by mouth in the morning and 1 tablet in the evening.IBUPROFEN 800 MG TABLET Take 1 tablet by mouth every 8 (eight) hours as needed for Pain (scale 4-6).IBUPROFEN 800 MG TABLET Take 1 tablet by mouth every 8 (eight) hours as needed for Pain (scale 4-6).ONDANSETRON (ZOFRAN, HYDROCHLORIDE,) 4 MG TABLET Take 1 tablet by mouth every 8 (eight) hours as needed for Nausea and Vomiting (N/V).PENICILLIN V POTASSIUM 500 MG TABLET Take 1 tablet by mouth 4 (four) times daily.PROMETHAZINE 25 MG TABLET Take 1 tablet by mouth every 6 (six) hours as needed for Nausea and Vomiting (N/V).PROMETHAZINE-CODEINE 6.25-10 MG/5 ML SYRUP Take 5 mL by mouth 4 (four) times daily as needed for Cough.SOD PVXMO-CPMWBX-VZGBQC BOTTLE (NEILMED SINUS RINSE COMPLETE) PKDV Use 1 Bottle in each nostril 2 (two) times daily. Use in hot shower 1 hour before bedtimeTRAMADOL (ULTRAM) 50 MG TABLET Take 1 tablet by mouth every 6 (six) hours as needed for Pain (scale 7-10).TRAMADOL (ULTRAM) 50 MG TABLET Take 1 tablet by mouth every 6 (six) hours as needed for Pain (scale 7-10). Indications: acute painSTART taking Modified Medications as PrescribedNo medications on fileSTOP taking these medicationsNo medications on fileFollow-up:Contact information for follow-Oscar Griffin MDSpecialty: FM-FAMILY MEDICINERelationship: PCP - Rqoauow4556 [facility] [address]Mapld: [phone]: For follow up of the presenting symptoms.ADC-Emergency DepartmentSpecialty: Emergency [address]rue[address] [place] [address]Eopop: [phone]: If symptoms worsen as documented in the dischargeElectronically signed by:Barrett Wiseman DO01/02/24 1346 02346-9Mebebkxvb Emergency department XrdxZT7154-17-74G58:46:33Physician Emergency department NoteTXT1.2.840.755694.1.13.104.2.7.2 .327262|[id number] for patient soho14689-0Hnwimkkrc department NoteLNNARRATIVEFormatted C-CDA narrative textUT[id number] JXQUYBMAXJIXHRZKACRLPX7549-58-50W41: 46:331.2.840.605385.1.72.3.15|1.2.84 0.795594.1.13.104.2.7.2.727879_20650 [address] [facility] 2023-12-17 07:07:49 jQ7iK7t6+DUGMKs9IvRNjOwdhNsTi8cS70Zf rxlQsqBINY9iIJ+0CvhJ2CfEv0Nn1591-92- 18T07:07:49 From: Renata Franklin: Office of BHARATH Mishraent: 12/15/2023 1:57 PM CDTSubject: Medication Renewal RequestRefills have been requested for the following medications:dextroamphetamine-amphet amine 30 mg tablet [Oscar Forbes]Preferred pharmacy: [facility] [id number] [place] [id number] [facility] [address] Murpyh method: PickupRecent VisitsDate Type Provider Dept11/22/23 Office Visit Oscra Forbes MD [facility] Med05/14/23 Office Visit Oscar Forbes MD [facility] Med03/05/23 Office Visit Oscar Forbes MD [facility] MedShowing recent visits within past 540 days with a meds authorizing provider and meeting all other requirementsFuture AppointmentsNo visits were found meeting these conditions.Showing future appointments within next 150 days with a meds authorizing provider and meeting all other requirements 77914-4Fpzivuxhd encounter PdmsOZ1326-55-31N59:08:01Telephone encounter NoteTXT1.2.840.793946.1.13.104.2.7.2 .[id number] for patient omzy55490-6IcpgVLLNNAQTOGDIewntcihc C-CDA narrative [address] Uw[id number] HYTLVBRXGSLBSCAXJQHRHN8109-94-13V74: 08:011.2.840.226592.1.72.3.15|1.2.84 0.754610.1.13.104.2.7.2.727879_20510 [address]33 [facility] 2023-10-16 10:41:38 oJ7fnyGiOi4GKIFI5DtoT8Te3PdORvaZ9rRI 7VCaBYsfGra1X4OXHHA5oxbG/2cq8540-46- 16T10:41:38Jessika Yang MA 10/16/2023 10:35 AM CSTLast refill wasdextroamphetamine-amphetamine 30 mg borpro4110/16/2023---Sig: Take 1 tablet by mouth in the morning and 1 tablet in the evening.Sent to pharmacy as: dextroamphetamine-amphetamine 30 mg tablet (ADDERALL)Class: eRXLast appointment 05/14/23----- Message -----From: Renata Walker nSent: 10/15/2023 4:22 PM CSTTo: Milo Ray Med NurseSubject: Medication Renewal RequestI have an appointment for the but I didn't know medicine wouldn't be filled. I can't wait until the to have my medications refilled. That's not.good for me. The appointment was the soonest one I could get. 35108-9Zoiddeeff encounter UzkdSW5566-76-79H89:41:38Telephone encounter NoteTXT1.2.840.331737.1.13.104.2.7.2 .208582|[id number] for patient cnxi98187-1ZdieDEXAXSSNCKLHlmurdtzs C-CDA narrative text[address] Rudh[id number] EMEDDBTZTRVHZPWMIWRTPH4194-61-06O28: 41:381.2.840.291263.1.72.3.15|1.2.84 0.032649.1.13.104.2.7.2.727879_19999 [address]61 [facility] 2023-10-16 09:11:17 dXGmUFhh0WAK2d4Thn5qHktQcxxKcfYWPVuP Crf4FOmgQRU+w36FqtBEpP+Iqajx5553-94- 16T09:11:17 From: Renata Franklin: Office of BHARATH Mishraent: 10/15/2023 4:23 PM CSTSubject: Medication Renewal RequestRefills have been requested for the following medications:dextroamphetamine-amphet amine 30 mg tablet [Oscar Forbes]Preferred pharmacy: [facility] [id number] [place] [id number] [facility] [address] Murphy method: PickupRecent VisitsDate Type Provider Dept05/14/23 Office Visit Oscar Forbes MD [facility] Med03/05/23 Office Visit Oscar Forbes MD [facility] MedShowing recent visits within past 540 days with a meds authorizing provider and meeting all other requirementsFuture AppointmentsDate Type Provider Dept10/24/23 Appointment Oscar Forbes MD [facility] MedShowing future appointments within next 150 days with a meds authorizing provider and meeting all other requirements 45587-3Apzyjaylo encounter SsoqNQ9505-61-40O62:11:30Telephone encounter NoteTXT1.2.840.686365.1.13.104.2.7.2 .470460|[id number] for patient yzlg51252-8TfxjOKAVSQEFRANNboejxqbj C-CDA narrative textUT[address] Sf[id number] XIBCTOCMEDGBMPOPYBIXWN9215-77-51R86: 11:301.2.840.975848.1.72.3.15|1.2.84 0.056608.1.13.104.2.7.2.727879_19998 27283 [facility] 2023-05-28 08:12:41 nLjETNgKN2bzyTrydwc0VG1wIXeqWRQ9jeka KHMdLEguTr8gh3lPsF8qAkaEziEP2704-14- 28T08:12:41 Message from [employer]:Nelly Mcgill LVN Mon May 28, 2023 8:09 AM----- Message -----From: Renata Walker: 05/28/2023 8:00 AM CDTTo: Milo Espinosa [facility] NurseSubject: Medication Renewal Request Refills have been requested for the following medications: dextroamphetamine-amphetamine 30 mg tablet [Oscar Forbes] Patient Comment: It was called in to [place]. I'm not sure why but is it possible to change it? Preferred pharmacy: [facility] [id number] - [place] [address] [facility] [address] Murphy method: Pickup 39613-4Rjavrxrsr encounter HoiyHE5664-95-76B13:12:41Telephone encounter NoteTXT1.2.840.395747.1.13.104.2.7.2 .818923|[id number] for patient nqes60111-3DhwlPSQQFYMNVH[id number] VGHBPOYPAFAUIBIDTYLALW0686-02-53X31: 12:411.2.840.753243.1.72.3.15|1.2.84 0.086084.1.13.104.2.7.2.727879_18846 70650 [facility] 2023-05-28 07:09:51 LJxllo4UHBPO7DEWAcfpw1+fh5Mp+Rh1TrLe pj6JC4pQ+O4paueUS1fhDykeMZjU9873-28- 28T07:09:51 Message from [employer]:Refills have been requested for the following medications: dextroamphetamine-amphetamine 30 mg tablet [Oscar Kalin Forbes]Preferred pharmacy: [facility] [id number] [place], [place] - [address] Murphy method: PickupRecent VisitsNo visits were found meeting these conditions.Showing recent visits within past 540 days with a meds authorizing provider and meeting all other requirementsFuture AppointmentsNo visits were found meeting these conditions.Showing future appointments within next 150 days with a meds authorizing provider and meeting all other requirements 25778-0Jjmqwqidb encounter VzhhHV9329-38-88L40:10:05Telephone encounter NoteTXT1.2.840.116745.1.13.104.2.7.2 .571255|[id number] for patient udso77785-6ZpktBPWSDVWRHD99 [id number] BUNFLIOGMXVEFCDCHVHCMX7716-83-10N10: 10:051.2.840.121708.1.72.3.15|1.2.84 0.924740.1.13.104.2.7.2.727879_18846 07986 [facility] 2023-05-25 10:51:01 YBVdywoLKeRuHy3fQA2jVkWppppCfn1RQ7qR 61hk4I3PNIK1mkGZ5FH9vHVI0Irf4283-11- 25T10:51:01 Recent VisitsDate Type Provider Dept 05/14/23 Office Visit Oscar Forbes MD [facility] 03/05/23 Office Visit Oscar Forbes MD [facility] Med Showing recent visits within past 540 days with a meds authorizing provider and meeting all other requirementsFuture AppointmentsNo visits were found meeting these conditions.Showing future appointments within next 150 days with a meds authorizing provider and meeting all other requirementsLast refill wasdextroamphetamine-amphetamine 30 mg tablet 60 tablet 0 04/30/2023 65683-1Hxnilzyeo encounter MwflAH2518-46-18O64:51:22Telephone encounter NoteTXT1.2.840.258422.1.13.104.2.7.2 .084445|[id number] for patient gkli85588-5GetsBG850997507Xgbgpoz R Leon [id number] TTPEFSZVMUKVREVJDNEDZO5472-61-33G38: 51:221.2.840.346356.1.72.3.15|1.2.84 0.984306.1.13.104.2.7.2.727879_18833 66826 Jessika R Trey [facility] 2023-04-30 10:27:43 MFLu9Ph6llnzziY7DMD7HGDEjP/G2tc+ApFl NHOb4SJHEydLQFke6EtDnx1SMfwr7464-46- 31T10:27:43 Closing encounter. Routed and being taken care of in separate encounter. 54801-4Znwpjdxbe encounter RuwmSI1930-10-37Z60:28:00Telephone encounter NoteTXT1.2.840.441687.1.13.104.2.7.2 .341191|[id number] for patient jzdk88355-6DqjqDE598608616Bobidys M Fisher [id number] TVORORHJUPWGEBFVQVZKAW3890-05-89I79: 28:001.2.840.169082.1.72.3.15|1.2.84 0.588993.1.13.104.2.7.2.727879_18625 05036 Nelly Mcgill LVN [facility] 2023-04-30 09:55:45 AiWhc2CPgjYcQac3gDihQXPvvzwQvKiRmjmA tOdeYdjJlGDUPx/tjkmK6zW37kQk1567-63- 31T09:55:45 Message from [employer]:Refills have been requested for the following medications: dextroamphetamine-amphetamine 30 mg tablet [Oscar Forbes]Preferred pharmacy: [facility] [id number] [place] [address] [facility] [address] method: PickupPatient is wanting clinic to know she has an appointment scheduled for May 14. Patient is asking for a courtesy refill. Due to having apt. Recent VisitsNo visits were found meeting these conditions.Showing recent visits within past 540 days with a meds authorizing provider and meeting all other requirementsFuture AppointmentsNo visits were found meeting these conditions.Showing future appointments within next 150 days with a meds authorizing provider and meeting all other requirements 20685-7Esepayzzv encounter CfjtXG5202-66-02E05:27:32Telephone encounter NoteTXT1.2.840.239725.1.13.104.2.7.2 .783515|[id number] for patient gfep58693-4KukfOOJCEZEGHB[id number] SCXRTFPLPURNAAZVUWDTNH8018-71-60C27: 27:321.2.840.009346.1.72.3.15|1.2.84 0.109972.1.13.104.2.7.2.727879_18624 66868 [facility] 2023-04-30 09:31:36 StaMzT0sRs9Ls46rKh0QAX3mYs7a0zouEPCO 6KrA82DX0e7p8DKcbLoEb28HAc9R3517-03- 31T09:31:36 Patient is wanting clinic to know she has an appointment scheduled for May 14. Patient is asking for a courtesy refill. Due to having apt. 26669-3Mhdabnajn encounter IqzoTV5393-97-22O69:33:54Telephone encounter NoteTXT1.2.840.312787.1.13.104.2.7.2 .996477|[id number] for patient djoh55359-8SzckMJ315198225Uhsglsh [id number] VNLQKKJTBNILRXISQQBUWJ6922-27-76X04: 33:541.2.840.093012.1.72.3.15|1.2.84 0.932864.1.13.104.2.7.2.727879_18624 33451 Kalyn Moura [facility] 2023-04-26 17:47:42 hQ4E1iaPIYTyT0EbJKoVE/2TdX4Nl6cR2dTk +rnais+TFKXKH7UFATFYwb1w1pHY0429-27- 27T17:47:42 Please review and sign if appropriate:Last office visit: 03/05/23Next office visit: 05/14/23Requested Prescriptions Pending Prescriptions Disp Refills dextroamphetamine-amphetamine 30 mg tablet 60 tablet 0 Sig: Take 1 tablet by mouth in the morning and 1 tablet in the evening. [facility] [id number] [place], [place] [address] [facility] [id number] [facility] [address]Ggmmw: [phone] Czrs refill date: 04/02/23Notes:Assessment/PlanADD, adderall 60636-9Terktwxkm encounter BtayMN8529-16-04F13:49:29Telephone encounter NoteTXT1.2.840.685845.1.13.104.2.7.2 .354761|[id number] for patient smph49991-6ZtkrBXKUDZTMXO62 [id number] GBAXGTYOXXLXEJNLSWFANG0543-54-22V12: 49:291.2.840.840164.1.72.3.15|1.2.84 0.168372.1.13.104.2.7.2.727879_18605 58701 [facility] 2023-04-26 17:47:31 YuhwGvHULrtJOeVgMytl1d1MUOe5hhFbnjdj zcEzUEIrhI2gcgz4963zISz2RihJ0238-96- 27T17:47:31 Message from [employer]:Refills have been requested for the following medications: dextroamphetamine-amphetamine 30 mg tablet [Oscar Forbes]Preferred pharmacy: [facility] [id number] [place] [address] [facility] N [address] Murphy method: Pickup 30618-7Lgmrphpdy encounter RzgqGQ6922-18-01M27:47:31Telephone encounter NoteTXT1.2.840.218872.1.13.104.2.7.2 .947471|[id number] for patient gqsb59224-5DfyxOIVGETUKNR62 [id number] DKHETHBMUXNIRJBFLGNSCD3640-83-45J22: 47:311.2.840.544118.1.72.3.15|1.2.84 0.733506.1.13.104.2.7.2.727879_18605 53635 [facility] 2023-04-26 09:32:57 IHB9rVSSHfpr9R37VMp9RBLcNRtzRkEk/Etv O0Mz5u8dA8aNChd9/AooOWl4FPVa5371-98- 27T09:32:57 dextroamphetamine-amphetami ne 30 mg tablet 60 tablet 0 04/02/2023 Last Refilled: 04/02/23Notes: [facility] [address]: Wqvxjj VisitsNo visits were found meeting these conditions.Showing recent visits within past 540 days with a meds authorizing provider and meeting all other requirementsFuture AppointmentsNo visits were found meeting these conditions.Showing future appointments within next 150 days with a meds authorizing provider and meeting all other requirements 70305-4Kekoqukca encounter FhqbLI8136-19-44F77:33:37Telephone encounter NoteTXT1.2.840.807040.1.13.104.2.7.2 .479786|[id number] for patient ptrc80170-4RxsuPMRNBXJCEH99 [id number] ZOVWJTQLRYYUACXLJXSSEU7603-31-22F36: 33:371.2.840.706284.1.72.3.15|1.2.84 0.698061.1.13.104.2.7.2.727879_18599 6[address]58 [facility] 2023-04-26 09:32:50 l7rRLgzXQ6EcK4M1O6Elqqvxq1ahrpxu3jW0 [facility]/PFzGdFUpgZL/gfCi8swCXMTc5577-39- 27T09:32:50 Message from Demarco:Refills have been requested for the following medications: dextroamphetamine-amphetamine 30 mg tablet [Oscar Forbes]Preferred pharmacy: [facility] [id number] [place] [address] [facility] AT [facility] [address] method: Pickup 18953-2Gqoezvdde encounter UtmeKI2356-70-55U73:32:50Telephone encounter NoteTXT1.2.840.440490.1.13.104.2.7.2 .713782|[id number] for patient uyyx22847-7LwzdTMCOLDODQP99 [id number] NNZWAIDFYEPHNWHXPIEFGQ8943-97-79Y37: 32:501.2.840.729662.1.72.3.15|1.2.84 0.278021.1.13.104.2.7.2.727879_18599 20757 [facility]
--- NOTE | 2024-01-16 15:58 | RAD REPORT ---
EXAM DESCRIPTION: RAD - Tib Fib Left - 01/16/2024 3:45 pm CLINICAL HISTORY: PAIN COMPARISON: No comparisons FINDINGS: No fracture or dislocation seen.
--- NOTE | 2024-01-16 16:24 | EDPHYS ---
Physician Documentation [facility] Name: Renata Worthy Age: 43 yrs Sex: Female : 1980 Arrival Date: 01/16/2024 Time: 14:06 Bed 10 Private MD: ED Physician Ted Persaud HPI: 01/15 14:40 This 43 yrs old Female presents to ER via Wheelchair with complaints of Ankle Injury - kb two weeks ago. 14:40 Pt is a 43 year old female who presents for left lateral ankle pain that radiates up to kb knee. States the pain started 2 weeks ago when a heavy wilber she was pulling down the stairs hit her in the ankle. Was seen at [place] [facility] and was told it didn't look broken, educated on RICE without x-ray. States pain has gotten worse.. Historical: - Allergies: 14:31 Macrobid; ko1 - Home Meds: 14:31 Adderall oral [Active]; ko1 - PSHx: 14:31 None; ko1 - Immunization history:: Adult Immunizations up to date, Last tetanus immunization: < 5 years ago. - Infectious Disease History:: Denies. - Social history:: Smoking status: Reported history of juuling and/or vaping. ROS: 14:40 Constitutional: As per HPI kb Exam: 14:40 Constitutional: This is a well developed, well nourished patient who is awake, alert, kb and in no acute distress. Head/Face: Normocephalic, atraumatic. ENT: Moist Mucous membranes Cardiovascular: Regular rate Respiratory: Respirations even and unlabored. No increased work of breathing. Talking in full sentences Skin: Warm, dry with normal turgor. Normal color. Neuro: Awake and alert, GCS 15, oriented to person, place, time, and situation. Moves all extremities. Normal gait. 14:40 Musculoskeletal/extremity: Extremities: grossly normal except: noted in the left lateral ankle: pain, tenderness, ROM: limited active range of motion due to pain, Circulation is intact in all extremities. Sensation intact. Weight bearing: can bear weight with assistance only, uses crutches, Vital Signs: 14:30 BP 165 / 107; Pulse 98; Resp 18; Temp 97.4; Pulse Ox 99% ; ko1 MDM: 14:09 Patient medically screened. kb 14:42 Differential diagnosis: fracture, sprain, contusion. Data reviewed: vital signs, nurses kb notes. 16:23 Counseling: I had a detailed discussion with the patient and/or guardian regarding the kb historical points, exam findings, and any diagnostic results supporting the discharge/admit diagnosis, radiology results, the need for outpatient follow up, a family practitioner, to return to the emergency department if symptoms worsen or persist or if there are any questions or concerns that arise at home. 01/15 15:19 Order name: Tib Fib Left; Complete Time: 16:10 EDMS Administered Medications: No medications were administered Disposition Summary: 01/16/24 16:24 Discharge Ordered Notes: Location: Home kb Condition: Stable kb Diagnosis - Contusion of left ankle kb Followup: kb - With: Emergency Department - When: As needed - Reason: Worsening of condition Followup: kb - With: Private Physician - When: 2 - 3 days - Reason: Recheck today's complaints, Continuance of care, Re-evaluation by your physician Discharge Instructions: - Discharge Summary Sheet kb - Musculoskeletal Pain kb - Contusion, Fkwe-df-Qlll kb Forms: - Medication Reconciliation Form kb - Thank You Letter kb - Antibiotic Education kb - Prescription Opioid Use kb - Patient Portal Instructions kb - Leadership Thank You Letter kb Addendum: 01/17/2024 23:00 I was immediately available for consultation during this patient's visit. I did not e c2 personally see the patient or discuss the patient with the [facility]. . Signatures: Dispatcher [employer] EDSerene Mcneal, ADONAY DOMINGOP-Viridiana Malhotra, RN RN ko1 Ted Persaud MD MD ec2 Corrections: (The following items were deleted from the chart) 01/15 15:18 14:30 Tib Fib Left+RAD.RAD.BRZ ordered. EDMS EDMS
--- NOTE | 2024-01-16 16:24 | ER ---
Nurse's Notes [facility] Name: Renata Worthy Age: 43 yrs Sex: Female : 1980 Arrival Date: 01/16/2024 Time: 14:06 Bed 10 Private MD: Diagnosis: Contusion of left ankle Presentation: 01/15 14:30 Chief complaint: Patient states: injured ankle 2 weeks ago, not getting better. ko1 Coronavirus screen: At this time, the client does not indicate any symptoms associated with coronavirus-19. Ebola Screen: No symptoms or risks identified at this time. Initial Sepsis Screen: Does the patient meet any 2 criteria? No. Patient's initial sepsis screen is negative. Does the patient have a suspected source of infection? No. Patient's initial sepsis screen is negative. Risk Assessment: Do you want to hurt yourself or someone else? Patient reports no desire to harm self or others. Onset of symptoms is unknown. 14:30 Method Of Arrival: Wheelchair ko1 14:30 Acuity: PATRICIA 4 ko1 Triage Assessment: 14:31 General: Appears in no apparent distress. uncomfortable, Behavior is calm, cooperative, ko1 appropriate for age. Pain: Complains of pain in left foot. Musculoskeletal: Reports pain in left foot, ankle and leg. Historical: - Allergies: 14:31 Macrobid; ko1 - Home Meds: 14:31 Adderall oral [Active]; ko1 - PSHx: 14:31 None; ko1 - Immunization history:: Adult Immunizations up to date, Last tetanus immunization: < 5 years ago. - Infectious Disease History:: Denies. - Social history:: Smoking status: Reported history of juuling and/or vaping. Screenin:11 [facility] ED Fall Risk Assessment (Adult) History of falling in the last 3 months, as6 including since admission Yes- single mechanical fall (1 pt) Confusion or Disorientation No (0 pts) Intoxicated or Sedated No (0 pts) Impaired Gait No (0 pts) Mobility Assist Device Used No (0 pt) Altered Elimination No (0 pt) Score/Fall Risk Level 0 - 2 = Low Risk Oriented to surroundings, Maintained a safe environment, Educated pt \T\ family on fall prevention, incl call for assistance when getting out of bed, Assessed \T\ reinforced patient's understanding of fall precautions. Abuse screen: Denies threats or abuse. Denies injuries from another. Nutritional screening: No deficits noted. Tuberculosis screening: No symptoms or risk factors identified. Assessment: 16:31 Reassessment: Patient appears in no apparent distress at this time. Patient and/or as6 family updated on plan of care and expected duration. Pain level reassessed. Patient is alert, oriented x 3, equal unlabored respirations, skin warm/dry/pink. Vital Signs: 14:30 BP 165 / 107; Pulse 98; Resp 18; Temp 97.4; Pulse Ox 99% ; ko1 ED Course: 14:09 Patient arrived in ED. im 14:09 Serene Fernandez FNP-C is [facility]. kb 14:09 Ted Persaud MD is Attending Physician. kb 14:31 Triage completed. ko1 14:31 Arm band placed on left wrist. Patient placed in an exam room, on a stretcher, on pulse ko1 oximetry, Patient notified of wait time. 14:57 Taye Santos, RN is Primary Nurse. as6 15:46 Tib Fib Left In Process Unspecified. EDMS 16:12 Bed in low position. Call light in reach. Warm blanket given. Pillow given. as6 16:31 Provided Education on: follow up. as6 16:31 No provider procedures requiring assistance completed. Patient did not have IV access as6 during this emergency room visit. Administered Medications: No medications were administered Medication: 16:12 VIS not applicable for this client. as6 Outcome: 16:24 Discharge ordered by MD. kb 16:31 Discharged to home via wheelchair, with significant other, as6 16:31 Condition: stable 16:31 Discharge instructions given to patient, Instructed on discharge instructions, follow up and referral plans. Demonstrated understanding of instructions, follow-up care, 16:31 Patient left the ED. as6 Signatures: Dispatcher [employer] EDMS Serene Fernandez FNP-C FNP-Taye Lew RN RN as6 Viridiana Kapadia RN RN ko1 Miri Saavedra im Corrections: (The following items were deleted from the chart) 15:18 14:59 In radiology for Tib Fib Left+RAD.RAD.BRZ. EDPA EDMS
[2024-01-17 03:27] VITALS: BP 165/107; TEMP 97.4; O2SAT 99
== END 2024-01-16 16:31 | disposition home or self-care (01) ==
LOC: ER 14:06
DX: S90.02XA Contusion of left ankle, initial encounter (principal); Z88.1 Allergy status to other antibiotic agents